=== PATIENT | male | born 1960 | race African-American/Black ===

== ENCOUNTER 2020-10-03 11:13 | Inpatient (IN) | payer MEDICAID, OTHER ==
[~2020-10-03] VITALS: Ht 165.1 cm; Wt 87.3 kg
[~2020-10-03 11:13] MED LIST: ASPI-886 PO; ATOR20TA58 PO; INSU100I13 SQ; INSU100V11 IJ; MULT-445 PO; NPH,100V5 SQ; Pantoprazole PO
[2020-10-03] MEDS ORDERED: cefTRIAXone IV Push 1 GM VIAL. IVP ONE ×2 (11:30→13:00)
--- NOTE | 2020-10-03 11:48 | RAD ---
Exam performed: One view chest. Indication: Reason: cough, covid? / Spl. Instructions: / History: Date of Service: 10/03/2020 11:34 AM Comparison: One view chest from 09/05/2018. Single AP upright portable view chest findings: Cardiomediastinal silhouette is within upper limits of normal. There are prominent interstitial cristal ngs and some airspace opacities in both lungs. Previous median sternotomy. No acute infiltrates, effu amelia or pneumothorax is detected. The bony structures are normal. Impression: Prominent interstitial and airspace opacities in both lungs likely infiltrates. Electronically signed by: Sarika Vogt MD (10/03/2020 11:46 AM) [id number]
[2020-10-03 11:54] LABS: BASO # 0.1 x10^3/uL (0.0-0.2); BASO % 1 % (0-3); EOS # 0.2 x10^3/uL (0.0-0.7); EOS % 3 % (0-3); HEMATOCRIT 36.8 % (39.0-53.0); HEMOGLOBIN 12.6 g/dL (13.0-17.5); LYMPH % 19 % (24-48); MEAN CORPUSCULAR HEMOGLOBIN 27 pg (25-35); MEAN CORPUSCULAR HGB CONC 34 g/dL (31-37); MEAN CORPUSCULAR VOLUME 80 fL (79-100); MONO # 0.6 x10^3/uL (0.0-1.1); MONO % 11 % (0-9); NEUT # 3.5 x10^3/uL (1.8-7.7); NEUT % 66 % (31-73); PLATELET COUNT 401 x10^3/uL (140-400); RED CELL DISTRIBUTION WIDTH 14.8 % (11.5-14.5); WHITE BLOOD COUNT 5.2 x10^3/uL (4.0-11.0)
[2020-10-03 12:05] LABS: CALCIUM 10.7 mg/dL (8.5-10.1); CREATININE 1.3 mg/dL (0.7-1.3); GFR 68.1; POTASSIUM 4.8 mmol/L (3.5-5.1)
[2020-10-03 12:11] LABS: ALBUMIN 3.4 g/dL (3.4-5.0); ALBUMIN/GLOBULIN RATIO 0.9 (1.0-1.7); TOTAL BILIRUBIN 0.4 mg/dL (0.2-1.0); TOTAL PROTEIN 7.3 g/dL (6.4-8.2)
[2020-10-03 12:17] LABS: C-REACTIVE PROTEIN 107.8 mg/L (0-3.3)
[2020-10-03] MEDS ORDERED: CONTRAST GIVEN. MC PRN (13:00)
[2020-10-03] MEDS ORDERED: DEXAMETHASONE SOD PHOS 4 MG/ML VIAL IVP ONE (13:00)
[2020-10-03] MEDS ORDERED: IOHEXOL 350 MG/ML 100 ML VIAL. IV ONE (13:00)
[2020-10-03] MEDS ORDERED: KETOROLAC 30 MG/ML VIAL. IVP ONE (13:00)
--- NOTE | 2020-10-03 13:34 | RAD ---
Examination: CT angiography chest with IV contrast HISTORY: History of shortness of breath, chest pain, elevated d-dimer COMPARISON: None available TECHNIQUE: Axial CT angiographic images of the chest were performed with IV contrast. Coronal and sag ittal 3-D MIP reformats. Exposure: One or more of the following individualized dose reduction techniques were utilized for thi s examination: 1. Automated exposure control 2. Adjustment of the mA and/or kV according to patient size 3. Use of iterative reconstruction technique FINDINGS: The central airways are patent. Coronary artery calcifications. The heart size grossly appears unrema rkable. There is no evidence of filling defect identified in the main pulmonary arterial trunk and right and left main pulmonary arteries and the visualized lobar, segmental branch of the pulmonary arteries. Th ere are diffuse patchy airspace opacities identified in the bilateral lungs. The visualized liver, sp kj, adrenals grossly appears unremarkable. Moderate degenerative changes thoracic spine. IMPRESSION: 1. No evidence of pulmonary embolism. 2. Diffuse patchy airspace opacities identified in the bilateral lungs suspicious for infiltrates or atypical or viral/ covid pneumonia. Electronically signed by: Pete Perez MD (10/03/2020 1:32 PM) [id number]
[2020-10-03] MEDS ORDERED: DEXTROSE 50% 25 GM / 50ML DISP.SYRIN. IV PRN (14:30)
[2020-10-03] MEDS ORDERED: CALCIUM CARBONATE 500 MG TAB.CHEW PO PRN (14:30)
[2020-10-03] MEDS ORDERED: MAG HYDROX/ALUMINUM HYD/SIMETH 30 ML ORAL.SUSP PO PRN (14:30)
[2020-10-03] MEDS ORDERED: ONDANSETRON PF 4 MG/2 ML VIAL. IVP PRN (14:30)
[2020-10-03] MEDS ORDERED: PROCHLORPERAZINE 10 MG/2 ML VIAL. IVP PRN (14:30)
[2020-10-03] MEDS ORDERED: MAGNESIUM HYDROXIDE 2,400 MG/30 ML ORAL.SUSP. PO PRN (14:30)
[2020-10-03] MEDS ORDERED: IV NORMAL SALINE 1000ML BAG 1,000 ML IV PRN (14:30)
[2020-10-03] MEDS ORDERED: BISACODYL 10 MG SUPP.RECT. PR PRN (14:30)
[2020-10-03] MEDS ORDERED: ZOLPIDEM 5 MG TABLET. PO PRN (14:30)
--- NOTE | 2020-10-03 14:42 | PDOC1 ---
History and Physical Date of Admission Date of Admission DATE: 10/03/20 TIME: 14:18 Identification/Chief Complaint Chief Complaint Weakness Source Source: Patient History of Present Illness History of Present Illness Patient is a 60-year-old male with past medical history DM2, who presents to the ER complaining of worsening of weakness for the past several days. He reports associated nausea, vomiting, fevers, and shortness of breath. This morning he fell to the floor and was barely able to crawl to his neighbors transfer assistance, and was then brought to the ER for further evaluation. He has known COVID-19 exposure at work. Upon arrival he was tachycardic, and his chest x-ray showed diffuse bilateral opacities suspicious for COVID-19 viral pneumonia. He is very weak and I feel unable to care for himself at this time. Will admit patient for further management. Past Medical History Cardiovascular: CAD, HTN, Hyperlipidemia GI: GERD Psych: No pertinent hx Rheumatologic: No pertinent hx Renal/: Chronic renal insuff Endocrine: Diabetes Past Surgical History Past Surgical History: CABG Family History Family History: Heart Disease, Hypertension Social History Smoke: No ALCOHOL: none Drugs: Cocaine Current Medications Current Medications Current Medications Ceftriaxone Sodium (Rocephin) 1 gm 1X ONCE IVP Last administered on 10/03/20at 11:57; Start 10/03/20 at 11:30; Stop 10/03/20 at 11:31; Status DC Iohexol (Omnipaque 350 Mg/ml) 100 ml 1X ONCE IV Last administered on 10/03/20at 13:29; Start 10/03/20 at 13:00; Stop 10/03/20 at 13:01; Status DC Info (CONTRAST GIVEN -- Rx MONITORING) 1 each PRN DAILY PRN MC SEE COMMENTS; Start 10/03/20 at 13:00; Stop 10/05/20 at 12:59 Dexamethasone Sodium Phosphate (Decadron) 10 mg 1X ONCE IVP Last administered on 10/03/20at 13:52; Start 10/03/20 at 13:00; Stop 10/03/20 at 13:01; Status DC Ceftriaxone Sodium (Rocephin) 1 gm 1X ONCE IVP ; Start 10/03/20 at 13:00; Stop 10/03/20 at 13:01; Status DC Ketorolac Tromethamine (Toradol 30mg Vial) 30 mg 1X ONCE IVP Last administered on 10/03/20at 13:51; Start 10/03/20 at 13:00; Stop 10/03/20 at 13:01; Status DC Active Scripts Active Multivitamins (Multivitamin) 1 Each Tablet 1 Tab PO DAILY [Pantoprazole] 40 MG Tablet.dr 40 Mg PO DAILYAC 30 Days Aspirin Ec (Aspirin) 81 Mg Tablet.dr 81 Mg PO DAILYWBKFT 30 Days Atorvastatin Calcium 20 Mg Tablet 20 Mg PO QHS 30 Days Reported Novolin N (Nph, Human Insulin Isophane) 100 Unit/1 Ml Vial 30 Unit SQ HS Novolin R (Insulin Regular, Human) 100 Unit/1 Ml Vial 30 Unit IJ TIDWMEALS Allergies Allergies: Coded Allergies: No Known Drug Allergies (Unverified , 09/05/18) ROS Review of System GENERAL: Weakness. Denies weight change. SKIN: No bruising, hair changes or rashes. EYES: No blurred, double or loss of vision. NOSE AND THROAT: Cough, sore throat. No history of nosebleeds. HEART: Denies chest pain, denies palpitations. LUNGS: Shortness of breath, cough. Denies hemoptysis, wheezing. GASTROINTESTINAL: Nausea and vomiting. Denies abdominal pain. GENITOURINARY: Denies dysuria, frequency, urgency, hematuria. NEUROLOGIC: Denies history of numbness, tingling, or tremor. PSYCHIATRIC: Denies anxiety, denies depression. ENDOCRINE: No history of heat or cold intolerance, polyuria or polydipsia. EXTREMITIES: Muscle weakness. Denies joint pain, pain on walking or stiffness. Physical Exam Physical Exam General: Alert, Oriented X3, Cooperative, lethargic HEENT: PERRLA, EOMI Lungs: Clear to auscultation, Normal air movement Heart: Tachycardic. No murmurs Cardiovascular: S1, S2 Abdomen: Normal bowel sounds, Soft, No tenderness Extremities: No clubbing, No cyanosis Skin: No rashes, No significant lesion Neuro: Normal speech, Normal tone, Sensation intact Psych/Mental Status: Mental status NL, Mood NL Vitals Vitals Vital Signs Date Time Temp Pulse Resp B/P (MAP) Pulse Ox O2 Delivery O2 Flow Rate FiO2 10/03/20 11:18 99.0 114 16 153/85 (107) 100 Room Air 99.0 Labs Labs Laboratory Tests Test 12/27/20 11:25 10/03/20 11:42 Glucose (Fingerstick) 298 mg/dL (70-99) White Blood Count 5.2 x10^3/uL (4.0-11.0) Red Blood Count 4.60 x10^6/uL (4.30-5.70) Hemoglobin 12.6 g/dL (13.0-17.5) Hematocrit 36.8 % (39.0-53.0) Mean Corpuscular Volume 80 fL (79-100) Mean Corpuscular Hemoglobin 27 pg (25-35) Mean Corpuscular Hemoglobin Concent 34 g/dL (31-37) Red Cell Distribution Width 14.8 % (11.5-14.5) Platelet Count 401 x10^3/uL (140-400) Neutrophils (%) (Auto) 66 % (31-73) Lymphocytes (%) (Auto) 19 % (24-48) Monocytes (%) (Auto) 11 % (0-9) Eosinophils (%) (Auto) 3 % (0-3) Basophils (%) (Auto) 1 % (0-3) Neutrophils # (Auto) 3.5 x10^3/uL (1.8-7.7) Lymphocytes # (Auto) 1.0 x10^3/uL (1.0-4.8) Monocytes # (Auto) 0.6 x10^3/uL (0.0-1.1) Eosinophils # (Auto) 0.2 x10^3/uL (0.0-0.7) Basophils # (Auto) 0.1 x10^3/uL (0.0-0.2) D-Dimer (Charla) 2.58 ug/mlFEU (0.00-0.50) Sodium Level 132 mmol/L (136-145) Potassium Level 4.8 mmol/L (3.5-5.1) Chloride Level 96 mmol/L (98-107) Carbon Dioxide Level 27 mmol/L (21-32) Anion Gap 9 (6-14) Blood Urea Nitrogen 15 mg/dL (8-26) Creatinine 1.3 mg/dL (0.7-1.3) Estimated GFR (Cockcroft-Gault) 68.1 BUN/Creatinine Ratio 12 (6-20) Glucose Level 318 mg/dL (70-99) Lactic Acid Level 1.8 mmol/L (0.4-2.0) Calcium Level 10.7 mg/dL (8.5-10.1) Total Bilirubin 0.4 mg/dL (0.2-1.0) Aspartate Amino Transf (AST/SGOT) 9 U/L (15-37) Alanine Aminotransferase (ALT/SGPT) 10 U/L (16-63) Alkaline Phosphatase 82 U/L (46-116) Lactate Dehydrogenase 251 U/L (85-227) Creatine Kinase 64 U/L (39-308) Troponin I Quantitative < 0.017 ng/mL (0.000-0.055) C-Reactive Protein, Quantitative 107.8 mg/L (0-3.3) VO-Wmk-H-Type Natriuretic Peptide 133 pg/mL (0-124) Total Protein 7.3 g/dL (6.4-8.2) Albumin 3.4 g/dL (3.4-5.0) Albumin/Globulin Ratio 0.9 (1.0-1.7) Laboratory Tests Test 10/03/20 11:25 10/03/20 11:42 Glucose (Fingerstick) 298 mg/dL (70-99) White Blood Count 5.2 x10^3/uL (4.0-11.0) Red Blood Count 4.60 x10^6/uL (4.30-5.70) Hemoglobin 12.6 g/dL (13.0-17.5) Hematocrit 36.8 % (39.0-53.0) Mean Corpuscular Volume 80 fL (79-100) Mean Corpuscular Hemoglobin 27 pg (25-35) Mean Corpuscular Hemoglobin Concent 34 g/dL (31-37) Red Cell Distribution Width 14.8 % (11.5-14.5) Platelet Count 401 x10^3/uL (140-400) Neutrophils (%) (Auto) 66 % (31-73) Lymphocytes (%) (Auto) 19 % (24-48) Monocytes (%) (Auto) 11 % (0-9) Eosinophils (%) (Auto) 3 % (0-3) Basophils (%) (Auto) 1 % (0-3) Neutrophils # (Auto) 3.5 x10^3/uL (1.8-7.7) Lymphocytes # (Auto) 1.0 x10^3/uL (1.0-4.8) Monocytes # (Auto) 0.6 x10^3/uL (0.0-1.1) Eosinophils # (Auto) 0.2 x10^3/uL (0.0-0.7) Basophils # (Auto) 0.1 x10^3/uL (0.0-0.2) D-Dimer (Charla) 2.58 ug/mlFEU (0.00-0.50) Sodium Level 132 mmol/L (136-145) Potassium Level 4.8 mmol/L (3.5-5.1) Chloride Level 96 mmol/L (98-107) Carbon Dioxide Level 27 mmol/L (21-32) Anion Gap 9 (6-14) Blood Urea Nitrogen 15 mg/dL (8-26) Creatinine 1.3 mg/dL (0.7-1.3) Estimated GFR (Cockcroft-Gault) 68.1 BUN/Creatinine Ratio 12 (6-20) Glucose Level 318 mg/dL (70-99) Lactic Acid Level 1.8 mmol/L (0.4-2.0) Calcium Level 10.7 mg/dL (8.5-10.1) Total Bilirubin 0.4 mg/dL (0.2-1.0) Aspartate Amino Transf (AST/SGOT) 9 U/L (15-37) Alanine Aminotransferase (ALT/SGPT) 10 U/L (16-63) Alkaline Phosphatase 82 U/L (46-116) Lactate Dehydrogenase 251 U/L (85-227) Creatine Kinase 64 U/L (39-308) Troponin I Quantitative < 0.017 ng/mL (0.000-0.055) C-Reactive Protein, Quantitative 107.8 mg/L (0-3.3) LW-Fmh-P-Type Natriuretic Peptide 133 pg/mL (0-124) Total Protein 7.3 g/dL (6.4-8.2) Albumin 3.4 g/dL (3.4-5.0) Albumin/Globulin Ratio 0.9 (1.0-1.7) Images Images Examination: CT angiography chest with IV contrast HISTORY: History of shortness of breath, chest pain, elevated d-dimer COMPARISON: None available TECHNIQUE: Axial CT angiographic images of the chest were performed with IV contrast. Coronal and sagittal 3-D MIP reformats. Exposure: One or more of the following individualized dose reduction techniques were utilized for this examination: 1. Automated exposure control 2. Adjustment of the mA and/or kV according to patient size 3. Use of iterative reconstruction technique FINDINGS: The central airways are patent. Coronary artery calcifications. The heart size grossly appears unremarkable. There is no evidence of filling defect identified in the main pulmonary arterial trunk and right and left main pulmonary arteries and the visualized lobar, segmental branch of the pulmonary arteries. There are diffuse patchy airspace opacities identified in the bilateral lungs. The visualized liver, spleen, adrenals grossly appears unremarkable. Moderate degenerative changes thoracic spine. IMPRESSION: 1. No evidence of pulmonary embolism. 2. Diffuse patchy airspace opacities identified in the bilateral lungs suspicious for infiltrates or atypical or viral/ covid pneumonia. VTE Prophylaxis Ordered VTE Prophylaxis Devices: No VTE Pharmacological Prophylaxi: Yes Assessment/Plan Assessment/Plan Atypical vs viral pneumonia COVID-19 PUI Weakness Physical debility DM2 with hyperglycemia Plan: COVID-19 pending Will treat atypical pneumonia with doxycycline twice daily Hold steroids unless patient requiring oxygen IV fluids Zofran as needed Basal insulin, MDSS insulin PT/OT CTA negative for PE FEN - ADA diet PPX - Lovenox FULL CODE Dispo - inpatient for above Justifications for Admission Other Justification GUSTAVO BOONE MD Oct 03, 2020 14:42
--- NOTE | 2020-10-03 14:43 | ED.ADGEN ---
Past Medical History Past Medical History: CAD, Diabetes-Type II Past Surgical History: Coronary Bypass Surgery Smoking Status: Never Smoker Alcohol Use: None Drug Use: None General Adult EDM: Chief Complaint: WEAKNESS/GENERALIZED HPI: HPI: Patient is a 60-year-old male who presents to the emergency room with severe weakness, cough, shortness of breath, body aches. He states that this started about 10 days ago and he has been unable to get out of bed since it all started. He generally feels unwell. He states that he had to crawl to his neighbor's house today to get help. They create him out to the car and brought him here. He did require significant assistance by nursing staff to get him out of the car and into a wheelchair. He states he has been having some shortness of breath but it is mild. Review of Systems: Review of Systems: Complete ROS is negative unless otherwise documented in HPI Current Medications: Current Medications Medications (Trade) Dose Ordered Sig/Magali Start Time Stop Time Status Last Admin Dose Admin Acetaminophen (Tylenol) 650 mg PRN Q6HRS PRN 10/03/20 14:30 Al Hydroxide/Mg Hydroxide (Mylanta Plus Xs) 30 ml PRN Q3HRS PRN 10/03/20 14:30 Bisacodyl (Dulcolax Supp) 10 mg PRN DAILY PRN 10/03/20 14:30 Calcium Carbonate/ Glycine (Tums) 500 mg PRN Q3HRS PRN 10/03/20 14:30 Ceftriaxone Sodium (Rocephin) 1 gm 1X ONCE 10/03/20 13:00 10/03/20 13:01 DC Dexamethasone Sodium Phosphate (Decadron) 10 mg 1X ONCE 10/03/20 13:00 10/03/20 13:01 DC 10/03/20 13:52 10 MG Dextrose (Dextrose 50%-Water Syringe) 12.5 gm PRN Q15MIN PRN 10/03/20 14:30 Doxycycline Hyclate 100 mg/ Dextrose 100 ml @ 50 mls/hr ONCE ONCE 10/03/20 15:00 10/03/20 16:59 Enoxaparin Sodium (Lovenox 40mg Syringe) 40 mg Q24H 10/04/20 09:00 Info (CONTRAST GIVEN -- Rx MONITORING) 1 each PRN DAILY PRN 10/03/20 13:00 10/05/20 12:59 Insulin Glargine (Lantus Syringe) 10 unit QHS 10/03/20 21:00 UNV Insulin Human Lispro (HumaLOG) 0-7 UNITS TIDWMEALS 10/03/20 17:00 UNV Iohexol (Omnipaque 350 Mg/ml) 100 ml 1X ONCE 10/03/20 13:00 10/03/20 13:01 DC 10/03/20 13:29 100 ML Ketorolac Tromethamine (Toradol 30mg Vial) 30 mg 1X ONCE 10/03/20 13:00 10/03/20 13:01 DC 10/03/20 13:51 30 MG Magnesium Hydroxide (Milk Of Magnesia) 2,400 mg PRN Q12HR PRN 10/03/20 14:30 Morphine Sulfate (Morphine Sulfate) 2 mg PRN Q1HR PRN 10/03/20 14:30 Ondansetron HCl (Zofran) 4 mg PRN Q6HRS PRN 10/03/20 14:30 Prochlorperazine Edisylate (Compazine) 10 mg PRN Q6HRS PRN 10/03/20 14:30 Sodium Chloride 1,000 ml @ 75 mls/hr CONT PRN 10/03/20 14:30 Zolpidem Tartrate (Ambien) 5 mg PRN QHS PRN 10/03/20 14:30 Allergies: Allergies: Allergies Coded Allergies Type Severity Reaction Last Updated Verified No Known Drug Allergies 09/05/18 No Physical Exam: PE: General: Awake, alert, NAD. Well Nourished, well hydrated. Cooperative HEENT: Atraumatic, EOMI, PERRL, airway patent, moist oral mucosa Neck: Supple, trachea midline Respiratory: CTA bilaterally, normal effort, no wheezing/crackles CV: RRR, no murmur, cap refill <2 GI: Soft, nondistended, nontender, no masses MSK: No obvious deformities Skin: Warm, dry, intact Neuro: A&O x3, speech NL, sensory and motor grossly intact, no focal deficits diffuse bilateral weakness Psych: Normal affect, normal mood, not suicidal or homicidal Current Patient Data: Labs: Laboratory Tests Test 10/03/20 11:25 10/03/20 11:42 Glucose (Fingerstick) 298 mg/dL (70-99) H White Blood Count 5.2 x10^3/uL (4.0-11.0) Red Blood Count 4.60 x10^6/uL (4.30-5.70) Hemoglobin 12.6 g/dL (13.0-17.5) L Hematocrit 36.8 % (39.0-53.0) L Mean Corpuscular Volume 80 fL (79-100) Mean Corpuscular Hemoglobin 27 pg (25-35) Mean Corpuscular Hemoglobin Concent 34 g/dL (31-37) Red Cell Distribution Width 14.8 % (11.5-14.5) H Platelet Count 401 x10^3/uL (140-400) H Neutrophils (%) (Auto) 66 % (31-73) Lymphocytes (%) (Auto) 19 % (24-48) L Monocytes (%) (Auto) 11 % (0-9) H Eosinophils (%) (Auto) 3 % (0-3) Basophils (%) (Auto) 1 % (0-3) Neutrophils # (Auto) 3.5 x10^3/uL (1.8-7.7) Lymphocytes # (Auto) 1.0 x10^3/uL (1.0-4.8) Monocytes # (Auto) 0.6 x10^3/uL (0.0-1.1) Eosinophils # (Auto) 0.2 x10^3/uL (0.0-0.7) Basophils # (Auto) 0.1 x10^3/uL (0.0-0.2) D-Dimer (Charla) 2.58 ug/mlFEU (0.00-0.50) H Sodium Level 132 mmol/L (136-145) L Potassium Level 4.8 mmol/L (3.5-5.1) Chloride Level 96 mmol/L (98-107) L Carbon Dioxide Level 27 mmol/L (21-32) Anion Gap 9 (6-14) Blood Urea Nitrogen 15 mg/dL (8-26) Creatinine 1.3 mg/dL (0.7-1.3) Estimated GFR (Cockcroft-Gault) 68.1 BUN/Creatinine Ratio 12 (6-20) Glucose Level 318 mg/dL (70-99) H Lactic Acid Level 1.8 mmol/L (0.4-2.0) Calcium Level 10.7 mg/dL (8.5-10.1) H Total Bilirubin 0.4 mg/dL (0.2-1.0) Aspartate Amino Transferase (AST) 9 U/L (15-37) L Alanine Aminotransferase (ALT) 10 U/L (16-63) L Alkaline Phosphatase 82 U/L (46-116) Lactate Dehydrogenase 251 U/L (85-227) H Creatine Kinase 64 U/L (39-308) Troponin I Quantitative < 0.017 ng/mL (0.000-0.055) C-Reactive Protein, Quantitative 107.8 mg/L (0-3.3) H NL-Hoh-M-Type Natriuretic Peptide 133 pg/mL (0-124) H Total Protein 7.3 g/dL (6.4-8.2) Albumin 3.4 g/dL (3.4-5.0) Albumin/Globulin Ratio 0.9 (1.0-1.7) L Laboratory Tests 10/03/20 11:42 Laboratory Tests 10/03/20 11:42 Vital Signs: Vital Signs Date Time Temp Pulse Resp B/P (MAP) Pulse Ox O2 Delivery O2 Flow Rate FiO2 10/03/20 11:18 99.0 114 16 153/85 (107) 100 Room Air 99.0 EKG: EKG: [] Heart Score: Risk Factors: Risk Factors: DM, Current or recent (<one month) smoker, HTN, HLP, family history of CAD, obesity. Risk Scores: Score 0 - 3: 2.5% MACE over next 6 weeks - Discharge Home Score 4 - 6: 20.3% MACE over next 6 weeks - Admit for Clinical Observation Score 7 - 10: 72.7% MACE over next 6 weeks - Early Invasive Strategies Radiology/Procedures: Radiology/Procedures: [] Course & Med Decision Making: Course & Med Decision Making Pertinent Labs and Imaging studies reviewed. (See chart for details) Patient is a 60-year-old male who presents to the emergency room with severe weakness, cough, body aches, fever. At this time there is concern for the novel coronavirus 19. Patient's risk factors include age, race, obesity. Risk stratifying work-up was ordered including chest x-ray, d-dimer, CPK, CRP, LDH, troponin, ferritin, CBC, CMP. At this time, patients labs, vitals, and exam are significant for elevated D-dimer, elevated inflammatory markers. Due to patient's risk and clinical picture, they will need to be admitted at this time. IVFs will be limited due to concern for fluid overload in COVID-19 patients. Patient will be given empiric antibiotics due to infiltrates and risk of co- bacterial infection. Further treatment will be dictated by the inpatient team. Dragon Disclaimer: Dragon Disclaimer: This electronic medical record was generated, in whole or in part, using a voice recognition dictation system. Departure Departure Impression: Primary Impression: Person under investigation for COVID-19 Additional Impression: Physical debility Disposition: ADMITTED INPT THIS HOSP Condition: IMPROVED Referrals: NO PCP (PCP) Problem Qualifiers YASMEEN BOLDEN MD Oct 03, 2020 14:43
[2020-10-03] MEDS ORDERED: DOXYCYCLINE HYCLATE 100 MG in IV DEXTROSE 5% 100ML 100 ML IV ONE (15:00)
[2020-10-03] MEDS ORDERED: DIPHENOXYLATE/ATROPINE TABLET. PO PRN (15:15)
[2020-10-03 16:41] LABS: INFLUENZA A PATIENT NEGATIVE (NEGATIVE); INFLUENZA B PATIENT NEGATIVE (NEGATIVE)
[2020-10-03] MEDS ORDERED: INSULIN LISPRO 300 UNITS/3 ML VIAL. SQ SCH (17:00)
[2020-10-03] MEDS: ASCORBIC ACID 500 MG TABLET PO SCH ×2 (17:57→23:54)
[2020-10-03] MEDS ORDERED: INSULIN LISPRO 300 UNITS/3 ML VIAL. SQ ONE (18:30)
[2020-10-03] MEDS ORDERED: INSULIN REGULAR 100 UNIT/ML 3ML VIAL. IV ONE (18:30)
[2020-10-03 19:05] VITALS: BP 127/76
[2020-10-03] MEDS ORDERED: INSULIN GLARGINE SYRINGE. SQ SCH (21:00)
[2020-10-03] MEDS: DOXYCYCLINE HYCLATE 100 MG in IV DEXTROSE 5% 100ML 100 ML IV SCH (21:40)
[2020-10-03] MEDS: INSULIN GLARGINE SYRINGE. SQ SCH (21:44)
[2020-10-03] MEDS: traMADol 50 MG TABLET PO PRN (22:00)
[2020-10-03 22:41] VITALS: BP 146/76
[2020-10-04 02:57] VITALS: BP 169/76
[2020-10-04] MEDS: ASCORBIC ACID 500 MG TABLET PO SCH ×4 (06:56→23:45)
[2020-10-04 07:00] VITALS: BP 145/66
[2020-10-04] MEDS ORDERED: INSULIN LISPRO 300 UNITS/3 ML VIAL. SQ ONE (08:15)
[2020-10-04] MEDS: DOXYCYCLINE HYCLATE 100 MG in IV DEXTROSE 5% 100ML 100 ML IV SCH ×2 (08:32→21:47)
[2020-10-04] MEDS: CHOLECALCIFEROL (VITAMIN D3) 5,000 UNIT CAPSULE PO SCH (08:32)
[2020-10-04] MEDS: ZINC SULFATE 220 MG CAPSULE. PO SCH (08:32)
[2020-10-04] MEDS: ENOXAPARIN 40 MG/0.4 ML SYRINGE. SQ SCH (08:33)
--- NOTE | 2020-10-04 09:48 | PDOC ---
PROGRESS NOTES Date of Service: DATE: 10/04/20 TIME: 09:48 Chief Complaint Chief Complaint VTE Prophylaxis Ordered VTE Prophylaxis Devices: No VTE Pharmacological Prophylaxi: Yes impression Assessment/Plan Atypical vs viral pneumonia COVID-19 PUI Weakness Physical debility DM2 with hyperglycemia, uncontrolled Plan: COVID-19 pending, PUI Will treat atypical pneumonia with doxycycline twice daily Hold steroids unless patient requiring oxygen IV fluids Zofran as needed Basal insulin, MDSS insulin PT/OT CTA negative for PE FEN - ADA diet PPX - Lovenox FULL CODE Dispo - inpatient for above CVC BED D/W RN Justifications for Admission Justifications for Admission Other Justification History of Present Illness History of Present Illness Identification/Chief Complaint Chief Complaint Weakness Source Source: Patient History of Present Illness History of Present Illness Patient is a 60-year-old male with past medical history DM2, who presents to the ER complaining of worsening of weakness for the past several days. He reports associated nausea, vomiting, fevers, and shortness of breath. This morning he fell to the floor and was barely able to crawl to his neighbors transfer assistance, and was then brought to the ER for further evaluation. He has known COVID-19 exposure at work. Upon arrival he was tachycardic, and his chest x-ray showed diffuse bilateral opacities suspicious for COVID-19 viral pneumonia. He is very weak and I feel unable to care for himself at this time. Will admit patient for further management. Past Medical History Cardiovascular: CAD, HTN, Hyperlipidemia GI: GERD Psych: No pertinent hx Rheumatologic: No pertinent hx Renal/: Chronic renal insuff Endocrine: Diabetes Past Surgical History Past Surgical History: CABG Family History Family History: Heart Disease, Hypertension Social History Smoke: No ALCOHOL: none Drugs: Cocaine Vitals Vitals Vital Signs Date Time Temp Pulse Resp B/P (MAP) Pulse Ox O2 Delivery O2 Flow Rate FiO2 10/04/20 07:00 97.5 74 20 145/66 (92) 98 Room Air 97.5 10/03/20 16:52 Physical Exam Physical Exam Physical Exam General: Alert, Oriented X3, Cooperative, lethargic HEENT: PERRLA, EOMI Lungs: Clear to auscultation, Normal air movement Heart: Tachycardic. No murmurs Cardiovascular: S1, S2 Abdomen: Normal bowel sounds, Soft, No tenderness Extremities: No clubbing, No cyanosis Skin: No rashes, No significant lesion Neuro: Normal speech, Normal tone, Sensation intact Psych/Mental Status: Mental status NL, Mood NL General: Cooperative Lungs: Clear Extremities: No cyanosis Labs LABS DERED: BCULT Procedure Result BLOOD CULTURE Preliminary NO GROWTH AFTER 1 DAY PATIENT: MARTHA AMADORACCOUNT: [id number] : 1960 LOCATION: ER AGE: 60 SEX: M EXAM STATUS: REG ER ORD. PHYSICIAN: YASMEEN BOLDEN MD REASON: sob, chest pain, elevated ddimer PROCEDURE: CT ANGIOGRAPHY CHEST Examination: CT angiography chest with IV contrast HISTORY: History of shortness of breath, chest pain, elevated d-dimer COMPARISON: None available TECHNIQUE: Axial CT angiographic images of the chest were performed with IV contrast. Coronal and sagittal 3-D MIP reformats. Exposure: One or more of the following individualized dose reduction techniques were utilized for this examination: 1. Automated exposure control 2. Adjustment of the mA and/or kV according to patient size 3. Use of iterative reconstruction technique FINDINGS: The central airways are patent. Coronary artery calcifications. The heart size grossly appears unremarkable. There is no evidence of filling defect identified in the main pulmonary arterial trunk and right and left main pulmonary arteries and the visualized lobar, segmental branch of the pulmonary arteries. There are diffuse patchy airspace opacities identified in the bilateral lungs. The visualized liver, spleen, adrenals grossly appears unremarkable. Moderate degenerative changes thoracic spine. IMPRESSION: 1. No evidence of pulmonary embolism. 2. Diffuse patchy airspace opacities identified in the bilateral lungs mclean spicious for infiltrates or atypical or viral/ covid pneumonia. Electronically signed by: Pete Perez MD (10/03/2020 1:32 PM) [id number] DICTATED and SIGNED BY: PETE PEREZ MD DATE: 10/03/20 [id number] Laboratory Tests Test 10/03/20 11:25 10/03/20 11:42 10/03/20 16:17 10/03/20 17:56 Glucose (Fingerstick) 298 mg/dL (70-99) 545 mg/dL (70-99) White Blood Count 5.2 x10^3/uL (4.0-11.0) Red Blood Count 4.60 x10^6/uL (4.30-5.70) Hemoglobin 12.6 g/dL (13.0-17.5) Hematocrit 36.8 % (39.0-53.0) Mean Corpuscular Volume 80 fL (79-100) Mean Corpuscular Hemoglobin 27 pg (25-35) Mean Corpuscular Hemoglobin Concent 34 g/dL (31-37) Red Cell Distribution Width 14.8 % (11.5-14.5) Platelet Count 401 x10^3/uL (140-400) Neutrophils (%) (Auto) 66 % (31-73) Lymphocytes (%) (Auto) 19 % (24-48) Monocytes (%) (Auto) 11 % (0-9) Eosinophils (%) (Auto) 3 % (0-3) Basophils (%) (Auto) 1 % (0-3) Neutrophils # (Auto) 3.5 x10^3/uL (1.8-7.7) Lymphocytes # (Auto) 1.0 x10^3/uL (1.0-4.8) Monocytes # (Auto) 0.6 x10^3/uL (0.0-1.1) Eosinophils # (Auto) 0.2 x10^3/uL (0.0-0.7) Basophils # (Auto) 0.1 x10^3/uL (0.0-0.2) D-Dimer (Charla) 2.58 ug/mlFEU (0.00-0.50) Sodium Level 132 mmol/L (136-145) Potassium Level 4.8 mmol/L (3.5-5.1) Chloride Level 96 mmol/L (98-107) Carbon Dioxide Level 27 mmol/L (21-32) Anion Gap 9 (6-14) Blood Urea Nitrogen 15 mg/dL (8-26) Creatinine 1.3 mg/dL (0.7-1.3) Estimated GFR (Cockcroft-Gault) 68.1 BUN/Creatinine Ratio 12 (6-20) Glucose Level 318 mg/dL (70-99) Lactic Acid Level 1.8 mmol/L (0.4-2.0) Calcium Level 10.7 mg/dL (8.5-10.1) Total Bilirubin 0.4 mg/dL (0.2-1.0) Aspartate Amino Transf (AST/SGOT) 9 U/L (15-37) Alanine Aminotransferase (ALT/SGPT) 10 U/L (16-63) Alkaline Phosphatase 82 U/L (46-116) Lactate Dehydrogenase 251 U/L (85-227) Creatine Kinase 64 U/L (39-308) Troponin I Quantitative < 0.017 ng/mL (0.000-0.055) C-Reactive Protein, Quantitative 107.8 mg/L (0-3.3) IE-Gqx-G-Type Natriuretic Peptide 133 pg/mL (0-124) Total Protein 7.3 g/dL (6.4-8.2) Albumin 3.4 g/dL (3.4-5.0) Albumin/Globulin Ratio 0.9 (1.0-1.7) Influenza Type A Antigen Negative (NEGATIVE) Influenza Type B Antigen Negative (NEGATIVE) Test 10/03/20 21:02 10/04/20 07:49 Glucose (Fingerstick) 590 mg/dL (70-99) 477 mg/dL (70-99) Comment Review of Relevant I have reviewed the following items prashant (where applicable) has been applied. Labs Laboratory Tests Test 10/03/20 11:25 10/03/20 11:42 10/03/20 16:17 10/03/20 17:56 Glucose (Fingerstick) 298 mg/dL (70-99) 545 mg/dL (70-99) White Blood Count 5.2 x10^3/uL (4.0-11.0) Red Blood Count 4.60 x10^6/uL (4.30-5.70) Hemoglobin 12.6 g/dL (13.0-17.5) Hematocrit 36.8 % (39.0-53.0) Mean Corpuscular Volume 80 fL (79-100) Mean Corpuscular Hemoglobin 27 pg (25-35) Mean Corpuscular Hemoglobin Concent 34 g/dL (31-37) Red Cell Distribution Width 14.8 % (11.5-14.5) Platelet Count 401 x10^3/uL (140-400) Neutrophils (%) (Auto) 66 % (31-73) Lymphocytes (%) (Auto) 19 % (24-48) Monocytes (%) (Auto) 11 % (0-9) Eosinophils (%) (Auto) 3 % (0-3) Basophils (%) (Auto) 1 % (0-3) Neutrophils # (Auto) 3.5 x10^3/uL (1.8-7.7) Lymphocytes # (Auto) 1.0 x10^3/uL (1.0-4.8) Monocytes # (Auto) 0.6 x10^3/uL (0.0-1.1) Eosinophils # (Auto) 0.2 x10^3/uL (0.0-0.7) Basophils # (Auto) 0.1 x10^3/uL (0.0-0.2) D-Dimer (Charla) 2.58 ug/mlFEU (0.00-0.50) Sodium Level 132 mmol/L (136-145) Potassium Level 4.8 mmol/L (3.5-5.1) Chloride Level 96 mmol/L (98-107) Carbon Dioxide Level 27 mmol/L (21-32) Anion Gap 9 (6-14) Blood Urea Nitrogen 15 mg/dL (8-26) Creatinine 1.3 mg/dL (0.7-1.3) Estimated GFR (Cockcroft-Gault) 68.1 BUN/Creatinine Ratio 12 (6-20) Glucose Level 318 mg/dL (70-99) Lactic Acid Level 1.8 mmol/L (0.4-2.0) Calcium Level 10.7 mg/dL (8.5-10.1) Total Bilirubin 0.4 mg/dL (0.2-1.0) Aspartate Amino Transf (AST/SGOT) 9 U/L (15-37) Alanine Aminotransferase (ALT/SGPT) 10 U/L (16-63) Alkaline Phosphatase 82 U/L (46-116) Lactate Dehydrogenase 251 U/L (85-227) Creatine Kinase 64 U/L (39-308) Troponin I Quantitative < 0.017 ng/mL (0.000-0.055) C-Reactive Protein, Quantitative 107.8 mg/L (0-3.3) AM-Pev-Q-Type Natriuretic Peptide 133 pg/mL (0-124) Total Protein 7.3 g/dL (6.4-8.2) Albumin 3.4 g/dL (3.4-5.0) Albumin/Globulin Ratio 0.9 (1.0-1.7) Influenza Type A Antigen Negative (NEGATIVE) Influenza Type B Antigen Negative (NEGATIVE) Test 10/03/20 21:02 10/04/20 07:49 Glucose (Fingerstick) 590 mg/dL (70-99) 477 mg/dL (70-99) Laboratory Tests Test 10/03/20 11:25 10/03/20 11:42 10/03/20 16:17 10/03/20 17:56 Glucose (Fingerstick) 298 mg/dL (70-99) 545 mg/dL (70-99) White Blood Count 5.2 x10^3/uL (4.0-11.0) Red Blood Count 4.60 x10^6/uL (4.30-5.70) Hemoglobin 12.6 g/dL (13.0-17.5) Hematocrit 36.8 % (39.0-53.0) Mean Corpuscular Volume 80 fL (79-100) Mean Corpuscular Hemoglobin 27 pg (25-35) Mean Corpuscular Hemoglobin Concent 34 g/dL (31-37) Red Cell Distribution Width 14.8 % (11.5-14.5) Platelet Count 401 x10^3/uL (140-400) Neutrophils (%) (Auto) 66 % (31-73) Lymphocytes (%) (Auto) 19 % (24-48) Monocytes (%) (Auto) 11 % (0-9) Eosinophils (%) (Auto) 3 % (0-3) Basophils (%) (Auto) 1 % (0-3) Neutrophils # (Auto) 3.5 x10^3/uL (1.8-7.7) Lymphocytes # (Auto) 1.0 x10^3/uL (1.0-4.8) Monocytes # (Auto) 0.6 x10^3/uL (0.0-1.1) Eosinophils # (Auto) 0.2 x10^3/uL (0.0-0.7) Basophils # (Auto) 0.1 x10^3/uL (0.0-0.2) D-Dimer (Charla) 2.58 ug/mlFEU (0.00-0.50) Sodium Level 132 mmol/L (136-145) Potassium Level 4.8 mmol/L (3.5-5.1) Chloride Level 96 mmol/L (98-107) Carbon Dioxide Level 27 mmol/L (21-32) Anion Gap 9 (6-14) Blood Urea Nitrogen 15 mg/dL (8-26) Creatinine 1.3 mg/dL (0.7-1.3) Estimated GFR (Cockcroft-Gault) 68.1 BUN/Creatinine Ratio 12 (6-20) Glucose Level 318 mg/dL (70-99) Lactic Acid Level 1.8 mmol/L (0.4-2.0) Calcium Level 10.7 mg/dL (8.5-10.1) Total Bilirubin 0.4 mg/dL (0.2-1.0) Aspartate Amino Transf (AST/SGOT) 9 U/L (15-37) Alanine Aminotransferase (ALT/SGPT) 10 U/L (16-63) Alkaline Phosphatase 82 U/L (46-116) Lactate Dehydrogenase 251 U/L (85-227) Creatine Kinase 64 U/L (39-308) Troponin I Quantitative < 0.017 ng/mL (0.000-0.055) C-Reactive Protein, Quantitative 107.8 mg/L (0-3.3) KG-Aap-C-Type Natriuretic Peptide 133 pg/mL (0-124) Total Protein 7.3 g/dL (6.4-8.2) Albumin 3.4 g/dL (3.4-5.0) Albumin/Globulin Ratio 0.9 (1.0-1.7) Influenza Type A Antigen Negative (NEGATIVE) Influenza Type B Antigen Negative (NEGATIVE) Test 10/03/20 21:02 10/04/20 07:49 Glucose (Fingerstick) 590 mg/dL (70-99) 477 mg/dL (70-99) Medications Current Medications Ceftriaxone Sodium (Rocephin) 1 gm 1X ONCE IVP Last administered on 10/03/20at 11:57; Start 10/03/20 at 11:30; Stop 10/03/20 at 11:31; Status DC Iohexol (Omnipaque 350 Mg/ml) 100 ml 1X ONCE IV Last administered on 10/03/20at 13:29; Start 10/03/20 at 13:00; Stop 10/03/20 at 13:01; Status DC Info (CONTRAST GIVEN -- Rx MONITORING) 1 each PRN DAILY PRN MC SEE COMMENTS; Start 10/03/20 at 13:00; Stop 10/05/20 at 12:59 Dexamethasone Sodium Phosphate (Decadron) 10 mg 1X ONCE IVP Last administered on 10/03/20at 13:52; Start 10/03/20 at 13:00; Stop 10/03/20 at 13:01; Status DC Ceftriaxone Sodium (Rocephin) 1 gm 1X ONCE IVP ; Start 10/03/20 at 13:00; Stop 10/03/20 at 13:01; Status DC Ketorolac Tromethamine (Toradol 30mg Vial) 30 mg 1X ONCE IVP Last administered on 10/03/20at 13:51; Start 10/03/20 at 13:00; Stop 10/03/20 at 13:01; Status DC Doxycycline Hyclate 100 mg/ Dextrose 100 ml @ 50 mls/hr BID IV Last administered on 10/04/20at 08:32; Start 10/03/20 at 21:00; Stop 10/08/20 at 20:59 Doxycycline Hyclate 100 mg/ Dextrose 100 ml @ 50 mls/hr ONCE ONCE IV ; Start 10/03/20 at 15:00; Stop 10/03/20 at 16:59; Status DC Ondansetron HCl (Zofran) 4 mg PRN Q6HRS PRN IVP NAUSEA/VOMITING; Start 10/03/20 at 14:30 Prochlorperazine Edisylate (Compazine) 10 mg PRN Q6HRS PRN IVP NAUSEA/VOMITING 2ND CHOICE; Start 10/03/20 at 14:30 Al Hydroxide/Mg Hydroxide (Mylanta Plus Xs) 30 ml PRN Q3HRS PRN PO HEARTBURN / GAS; Start 10/03/20 at 14:30 Calcium Carbonate/ Glycine (Tums) 500 mg PRN Q3HRS PRN PO UPSET STOMACH; Start 10/03/20 at 14:30 Zolpidem Tartrate (Ambien) 5 mg PRN QHS PRN PO INSOMNIA, MAY REPEAT IN 1HR; Start 10/03/20 at 14:30 Morphine Sulfate (Morphine Sulfate) 2 mg PRN Q1HR PRN IV PAIN; Start 10/03/20 at 14:30 Acetaminophen (Tylenol) 650 mg PRN Q6HRS PRN PO Headaches, Temp > 101.5F; Start 10/03/20 at 14:30 Magnesium Hydroxide (Milk Of Magnesia) 2,400 mg PRN Q12HR PRN PO CONSTIPATION; Start 10/03/20 at 14:30 Bisacodyl (Dulcolax Supp) 10 mg PRN DAILY PRN ND CONSTIPATION; Start 10/03/20 at 14:30 Enoxaparin Sodium (Lovenox 40mg Syringe) 40 mg Q24H SQ Last administered on 10/04/20at 08:33; Start 10/04/20 at 09:00 Insulin Glargine (Lantus Syringe) 10 unit QHS SQ ; Start 10/03/20 at 21:00; Stop 10/03/20 at 20:44; Status DC Insulin Human Lispro (HumaLOG) 0-7 UNITS TIDWMEALS SQ Last administered on 10/03/20at 18:17; Start 10/03/20 at 17:00; Stop 10/04/20 at 08:08; Status DC Dextrose (Dextrose 50%-Water Syringe) 12.5 gm PRN Q15MIN PRN IV SEE COMMENTS; Start 10/03/20 at 14:30 Sodium Chloride 1,000 ml @ 75 mls/hr CONT PRN IV SEE I/O Last administered on 10/03/20at 16:15; Start 10/03/20 at 14:30 Zinc Sulfate (Orazinc) 220 mg DAILY PO Last administered on 10/04/20at 08:32; Start 10/04/20 at 09:00 Ascorbic Acid (Vitamin C) 500 mg Q6HRS PO Last administered on 10/04/20at 06:56; Start 10/03/20 at 18:00 Vitamin D (Vitamin D3) 5,000 unit DAILY PO Last administered on 10/04/20at 08:32; Start 10/04/20 at 09:00 Diphenoxylate HCl/ Atropine (Lomotil) 1 tab PRN QID PRN PO DIARRHEA; Start 10/03/20 at 15:15 Insulin Human Lispro (HumaLOG) 5 units 1X ONCE SQ ; Start 10/03/20 at 18:30; Stop 10/03/20 at 18:31; Status DC Insulin Human Regular (HumuLIN R VIAL) 5 unit 1X ONCE IV Last administered on 10/03/20at 18:24; Start 10/03/20 at 18:30; Stop 10/03/20 at 18:32; Status DC Insulin Glargine (Lantus Syringe) 70 unit QHS SQ Last administered on 10/03/20at 21:44; Start 10/03/20 at 21:00 Tramadol HCl (Ultram) 50 mg PRN Q6HRS PRN PO PAIN Last administered on 10/03/20at 22:00; Start 10/03/20 at 20:45 Insulin Human Lispro (HumaLOG) 20 units 1X ONCE SQ Last administered on 10/04/20at 08:34; Start 10/04/20 at 08:15; Stop 10/04/20 at 08:25; Status DC Insulin Human Lispro (HumaLOG) 30 units TIDWMEALS SQ ; Start 10/04/20 at 12:00 Active Scripts Active Multivitamins (Multivitamin) 1 Each Tablet 1 Tab PO DAILY [Pantoprazole] 40 MG Tablet. 40 Mg PO DAILYAC 30 Days Aspirin Ec (Aspirin) 81 Mg Tablet. 81 Mg PO DAILYWBKFT 30 Days Atorvastatin Calcium 20 Mg Tablet 20 Mg PO QHS 30 Days Reported Novolin N (Nph, Human Insulin Isophane) 100 Unit/1 Ml Vial 70 Unit SQ HS Novolin R (Insulin Regular, Human) 100 Unit/1 Ml Vial 30 Unit IJ TIDWMEALS Vitals/I & O Vital Sign - Last 24 Hours 10/03/20 10/03/20 10/03/20 10/03/20 11:18 11:24 11:52 12:22 Temp 99.0 99.0 Pulse 114 112 108 84 Resp 16 B/P (MAP) 153/85 (107) Pulse Ox 100 100 98 98 O2 Delivery Room Air 10/03/20 10/03/20 10/03/20 10/03/20 12:52 13:49 14:22 14:52 Pulse 106 92 104 80 Pulse Ox 100 98 98 98 10/03/20 10/03/20 10/03/20 10/03/20 15:22 15:52 16:52 17:30 Pulse 78 80 80 Resp 23 Pulse Ox 95 92 100 O2 Delivery Room Air O2 Flow Rate 10/03/20 10/03/20 10/03/20 10/03/20 19:05 20:00 22:00 22:41 Temp 97.4 97.2 97.4 97.2 Pulse 74 79 Resp 18 18 B/P (MAP) 127/76 (93) 146/76 (99) Pulse Ox 98 98 98 O2 Delivery Room Air Room Air Nasal Cannula Room Air 10/03/20 10/04/20 10/04/20 23:00 02:57 07:00 Temp 97.6 97.5 97.6 97.5 Pulse 67 74 Resp 16 20 B/P (MAP) 169/76 (107) 145/66 (92) Pulse Ox 98 97 98 O2 Delivery Room Air Room Air Room Air Intake and Output 10/03/20 10/03/20 10/04/20 15:00 23:00 07:00 Intake Total 300 ml 950 ml Output Total 250 ml 900 ml Balance 50 ml 50 ml Justicifation of Admission Dx: Justifications for Admission: Justification of Admission Dx: Yes Comminuty Aquired Pneumonia: Hypoxemia Comments: HYPOXIA VENECIA MINAYA MD Oct 04, 2020 09:48
[2020-10-04 11:00] VITALS: BP 104/68
--- NOTE | 2020-10-04 11:12 | CONS ---
DATE OF CONSULTATION: PULMONARY CONSULTATION ATTENDING PHYSICIAN: Marco Cordova MD REASON FOR CONSULTATION: Hypoxia, dyspnea. HISTORY OF PRESENT ILLNESS The patient is a 60-year-old male who has history of type 2 diabetes. He was brought into the hospital with complaint of worsening weakness. He has some shortness of breath and cough. He has some subjective fever and vomiting as well. The patient fell to the floor and was barely able to crawl due to weakness. He asked the neighbors for assistance. He had known COVID exposure at work. He was evaluated in the Emergency Room. Currently, he is on room air. He is afebrile. His CTA chest was reviewed. There was no evidence of pulmonary embolism. There were diffuse bilateral patchy airspace opacities consistent with viral infection. PAST MEDICAL HISTORY: Significant for hypertension, CAD, hyperlipidemia, GERD, chronic renal insufficiency, and diabetes. PAST SURGICAL HISTORY: CABG. FAMILY HISTORY: Heart disease and hypertension. SOCIAL HISTORY: Denies significant tobacco use. He has done cocaine. ALLERGIES: None. CURRENT MEDICATIONS: Reviewed as listed in the MRAD. REVIEW OF SYSTEMS: Ten-point system obtained. Pertinent positives discussed in my history of present illness, otherwise noncontributory. All systems that were negative were reviewed as well. PHYSICAL EXAMINATION: VITAL SIGNS: Reviewed. He is afebrile, pulse ox 90% on room air. GENERAL: Visual exam done due to COVID suspicion. No obvious respiratory distress. SKIN: No skin rash. EXTREMITIES: No leg edema. LABORATORY DATA: Reviewed. His influenza screen is negative. BUN and creatinine 15 and 1.3. D-dimer 2.5. White cell count 5.2, hemoglobin 12.6, platelets 241. IMPRESSION: 1. Dyspnea with diffuse bilateral patchy airspace opacities on a CT chest. Highly suspicious for COVID-19 viral pneumonia. He is on room air at present. 2. Abnormal CT chest with diffuse bilateral patchy airspace opacities suggestive of viral infection, likely COVID. He has known exposure. 3. No significant tobacco history. 4. Abnormal D-dimer. No evidence of pulmonary embolism. Likely D-dimer elevation is related to COVID-19. RECOMMENDATIONS: 1. We will continue isolation until COVID ruled out. 2. Once COVID positive, we should initiate dexamethasone. 3. Continue Lovenox for DVT prophylaxis. 4. Continue empiric antibiotic. 5. Monitor the clinical course. CAROLYN HAYES MD DR: KEN/kimberly JOB#: [id number] / [id number]
[2020-10-04] MEDS ORDERED: INSULIN LISPRO 300 UNITS/3 ML VIAL. SQ SCH (12:00)
[2020-10-04] MEDS: MULTIVITAMIN with MINERAL TABLET. PO SCH (13:17)
[2020-10-04] MEDS: ASPIRIN ENTERIC COATED 81 MG TABLET.DR. PO SCH (13:18)
[2020-10-04] MEDS: INSULIN LISPRO 300 UNITS/3 ML VIAL. SQ SCH ×2 (13:20→17:55)
[2020-10-04 14:18] LABS: BARBITURATES NEG (NEG); BENZODIAZEPINES NEG (NEG); CANNABINOIDS NEG (NEG); COCAINE NEG (NEG); METHADONE NEG (NEG); OPIATES NEG (NEG); PHENCYCLIDINE NEG (NEG)
[2020-10-04 14:19] LABS: AMPHETAMINE/METHAMPHETAMINE NEG (NEG)
[2020-10-04 15:00] VITALS: BP 106/76
[2020-10-04 19:00] VITALS: BP_SYST 153; BP_SYST 99; BP_DIAS 67; BP_DIAS 70
--- NOTE | 2020-10-04 19:35 | NUR ---
Pt sitting up in chair without c/o pain assessment completed vss poc explained will resume care and continue to monitor pt. Call light placed in reach.
[2020-10-04] MEDS ORDERED: NPH HUMAN INSULIN ISOPHANE SQ SCH (21:00)
[2020-10-04] MEDS: ATORVASTATIN CALCIUM 20 MG TABLET PO SCH (21:47)
[2020-10-04] MEDS: LACTOBACILLUS RHAMNOSUS GG 1 CAPSULE. PO SCH (21:47)
[2020-10-04] MEDS: INSULIN GLARGINE SYRINGE. SQ SCH (21:49)
[2020-10-04 23:00] VITALS: BP 126/79
[2020-10-04 23:08] LABS: HEMOGLOBIN A1C 11.8 % (4.8-5.6)
[2020-10-05 03:15] VITALS: BP 101/53
[2020-10-05] MEDS: ASCORBIC ACID 500 MG TABLET PO SCH ×3 (06:46→17:25)
[2020-10-05] MEDS: PANTOPRAZOLE 40 MG TABLET.DR. PO SCH (06:47)
[2020-10-05 07:00] VITALS: BP 129/83
[2020-10-05] MEDS: LACTOBACILLUS RHAMNOSUS GG 1 CAPSULE. PO SCH ×2 (08:48→20:26)
[2020-10-05] MEDS: ZINC SULFATE 220 MG CAPSULE. PO SCH (08:48)
[2020-10-05] MEDS: DOXYCYCLINE HYCLATE 100 MG in IV DEXTROSE 5% 100ML 100 ML IV SCH ×2 (08:48→20:32)
[2020-10-05] MEDS: CHOLECALCIFEROL (VITAMIN D3) 5,000 UNIT CAPSULE PO SCH (08:48)
[2020-10-05] MEDS: ASPIRIN ENTERIC COATED 81 MG TABLET.DR. PO SCH (08:48)
[2020-10-05] MEDS: MULTIVITAMIN with MINERAL TABLET. PO SCH (08:48)
[2020-10-05] MEDS: INSULIN LISPRO 300 UNITS/3 ML VIAL. SQ SCH ×3 (08:50→17:00)
[2020-10-05] MEDS: ENOXAPARIN 40 MG/0.4 ML SYRINGE. SQ SCH (08:50)
--- NOTE | 2020-10-05 08:54 | PDOC ---
PROGRESS NOTES Date of Service: DATE: 10/05/20 TIME: 08:53 Chief Complaint Chief Complaint VTE Prophylaxis Ordered VTE Prophylaxis Devices: No VTE Pharmacological Prophylaxi: Yes impression Assessment/Plan Atypical vs viral pneumonia COVID-19 PUI Weakness Physical debility DM2 with hyperglycemia, uncontrolled Plan: COVID-19 pending, PUI Will treat atypical pneumonia with doxycycline twice daily Hold steroids unless patient requiring oxygen IV fluids Zofran as needed Basal insulin, MDSS insulin PT/OT CTA negative for PE FEN - ADA diet PPX - Lovenox FULL CODE Dispo - inpatient for above CVC BED iv steroids will need full ten day course Continue ABX: //DOXY PT/OT DVT/GI PPX chloraseptic spray prn D/W RN Justifications for Admission Justifications for Admission Other Justification History of Present Illness History of Present Illness Identification/Chief Complaint Chief Complaint Weakness Source Source: Patient History of Present Illness History of Present Illness Patient is a 60-year-old male with past medical history DM2, who presents to the ER complaining of worsening of weakness for the past several days. He reports associated nausea, vomiting, fevers, and shortness of breath. This morning he fell to the floor and was barely able to crawl to his neighbors transfer assistance, and was then brought to the ER for further evaluation. He has known COVID-19 exposure at work. Upon arrival he was tachycardic, and his chest x-ray showed diffuse bilateral opacities suspicious for COVID-19 viral pneumonia. He is very weak and I feel unable to care for himself at this time. Will admit patient for further management. Past Medical History Cardiovascular: CAD, HTN, Hyperlipidemia GI: GERD Psych: No pertinent hx Rheumatologic: No pertinent hx Renal/: Chronic renal insuff Endocrine: Diabetes Past Surgical History Past Surgical History: CABG Family History Family History: Heart Disease, Hypertension Social History Smoke: No ALCOHOL: none Drugs: Cocaine Vitals Vitals Vital Signs Date Time Temp Pulse Resp B/P (MAP) Pulse Ox O2 Delivery O2 Flow Rate FiO2 10/05/20 07:00 97.7 80 20 129/83 (98) 98 Room Air 97.7 Physical Exam Physical Exam Physical Exam General: Alert, Oriented X3, Cooperative, lethargic HEENT: PERRLA, EOMI Lungs: Clear to auscultation, Normal air movement Heart: Tachycardic. No murmurs Cardiovascular: S1, S2 Abdomen: Normal bowel sounds, Soft, No tenderness Extremities: No clubbing, No cyanosis Skin: No rashes, No significant lesion Neuro: Normal speech, Normal tone, Sensation intact Psych/Mental Status: Mental status NL, Mood NL General: Cooperative Lungs: Clear Abdomen: No tenderness Extremities: No cyanosis Labs LABS Laboratory Tests Test 10/04/20 10:55 10/04/20 12:03 10/04/20 16:46 10/04/20 17:52 Hemoglobin A1c 11.8 % (4.8-5.6) Urine Opiates Screen Neg (NEG) Urine Methadone Screen Neg (NEG) Urine Barbiturates Neg (NEG) Urine Phencyclidine Screen Neg (NEG) Urine Amphetamine/Methamphetamine Neg (NEG) Urine Benzodiazepines Screen Neg (NEG) Urine Cocaine Screen Neg (NEG) Urine Cannabinoids Screen Neg (NEG) Urine Ethyl Alcohol Neg (NEG) Glucose (Fingerstick) 372 mg/dL (70-99) 123 mg/dL (70-99) 126 mg/dL (70-99) Test 10/04/20 21:51 10/05/20 07:37 Glucose (Fingerstick) 241 mg/dL (70-99) 302 mg/dL (70-99) Comment Review of Relevant I have reviewed the following items prashant (where applicable) has been applied. Labs Laboratory Tests Test 10/03/20 11:25 10/03/20 11:42 10/03/20 12:02 10/03/20 16:17 Glucose (Fingerstick) 298 mg/dL (70-99) White Blood Count 5.2 x10^3/uL (4.0-11.0) Red Blood Count 4.60 x10^6/uL (4.30-5.70) Hemoglobin 12.6 g/dL (13.0-17.5) Hematocrit 36.8 % (39.0-53.0) Mean Corpuscular Volume 80 fL (79-100) Mean Corpuscular Hemoglobin 27 pg (25-35) Mean Corpuscular Hemoglobin Concent 34 g/dL (31-37) Red Cell Distribution Width 14.8 % (11.5-14.5) Platelet Count 401 x10^3/uL (140-400) Neutrophils (%) (Auto) 66 % (31-73) Lymphocytes (%) (Auto) 19 % (24-48) Monocytes (%) (Auto) 11 % (0-9) Eosinophils (%) (Auto) 3 % (0-3) Basophils (%) (Auto) 1 % (0-3) Neutrophils # (Auto) 3.5 x10^3/uL (1.8-7.7) Lymphocytes # (Auto) 1.0 x10^3/uL (1.0-4.8) Monocytes # (Auto) 0.6 x10^3/uL (0.0-1.1) Eosinophils # (Auto) 0.2 x10^3/uL (0.0-0.7) Basophils # (Auto) 0.1 x10^3/uL (0.0-0.2) D-Dimer (Charla) 2.58 ug/mlFEU (0.00-0.50) Sodium Level 132 mmol/L (136-145) Potassium Level 4.8 mmol/L (3.5-5.1) Chloride Level 96 mmol/L (98-107) Carbon Dioxide Level 27 mmol/L (21-32) Anion Gap 9 (6-14) Blood Urea Nitrogen 15 mg/dL (8-26) Creatinine 1.3 mg/dL (0.7-1.3) Estimated GFR (Cockcroft-Gault) 68.1 BUN/Creatinine Ratio 12 (6-20) Glucose Level 318 mg/dL (70-99) Lactic Acid Level 1.8 mmol/L (0.4-2.0) Calcium Level 10.7 mg/dL (8.5-10.1) Total Bilirubin 0.4 mg/dL (0.2-1.0) Aspartate Amino Transf (AST/SGOT) 9 U/L (15-37) Alanine Aminotransferase (ALT/SGPT) 10 U/L (16-63) Alkaline Phosphatase 82 U/L (46-116) Lactate Dehydrogenase 251 U/L (85-227) Creatine Kinase 64 U/L (39-308) Troponin I Quantitative < 0.017 ng/mL (0.000-0.055) C-Reactive Protein, Quantitative 107.8 mg/L (0-3.3) WN-Hpe-O-Type Natriuretic Peptide 133 pg/mL (0-124) Total Protein 7.3 g/dL (6.4-8.2) Albumin 3.4 g/dL (3.4-5.0) Albumin/Globulin Ratio 0.9 (1.0-1.7) Coronavirus (PCR) Detected (Not Detected) Influenza Type A Antigen Negative (NEGATIVE) Influenza Type B Antigen Negative (NEGATIVE) Test 10/03/20 17:56 10/03/20 21:02 10/04/20 07:49 10/04/20 10:55 Glucose (Fingerstick) 545 mg/dL (70-99) 590 mg/dL (70-99) 477 mg/dL (70-99) Hemoglobin A1c 11.8 % (4.8-5.6) Urine Opiates Screen Neg (NEG) Urine Methadone Screen Neg (NEG) Urine Barbiturates Neg (NEG) Urine Phencyclidine Screen Neg (NEG) Urine Amphetamine/Methamphetamine Neg (NEG) Urine Benzodiazepines Screen Neg (NEG) Urine Cocaine Screen Neg (NEG) Urine Cannabinoids Screen Neg (NEG) Urine Ethyl Alcohol Neg (NEG) Test 10/04/20 12:03 10/04/20 16:46 10/04/20 17:52 10/04/20 21:51 Glucose (Fingerstick) 372 mg/dL (70-99) 123 mg/dL (70-99) 126 mg/dL (70-99) 241 mg/dL (70-99) Test 10/05/20 07:37 Glucose (Fingerstick) 302 mg/dL (70-99) Laboratory Tests Test 10/04/20 10:55 10/04/20 12:03 10/04/20 16:46 10/04/20 17:52 Hemoglobin A1c 11.8 % (4.8-5.6) Urine Opiates Screen Neg (NEG) Urine Methadone Screen Neg (NEG) Urine Barbiturates Neg (NEG) Urine Phencyclidine Screen Neg (NEG) Urine Amphetamine/Methamphetamine Neg (NEG) Urine Benzodiazepines Screen Neg (NEG) Urine Cocaine Screen Neg (NEG) Urine Cannabinoids Screen Neg (NEG) Urine Ethyl Alcohol Neg (NEG) Glucose (Fingerstick) 372 mg/dL (70-99) 123 mg/dL (70-99) 126 mg/dL (70-99) Test 10/04/20 21:51 10/05/20 07:37 Glucose (Fingerstick) 241 mg/dL (70-99) 302 mg/dL (70-99) Microbiology 10/03/20 Blood Culture - Preliminary, Resulted NO GROWTH AFTER 1 DAY Medications Current Medications Ceftriaxone Sodium (Rocephin) 1 gm 1X ONCE IVP Last administered on 10/03/20at 11:57; Start 10/03/20 at 11:30; Stop 10/03/20 at 11:31; Status DC Iohexol (Omnipaque 350 Mg/ml) 100 ml 1X ONCE IV Last administered on 10/03/20at 13:29; Start 10/03/20 at 13:00; Stop 10/03/20 at 13:01; Status DC Info (CONTRAST GIVEN -- Rx MONITORING) 1 each PRN DAILY PRN MC SEE COMMENTS; Start 10/03/20 at 13:00; Stop 10/05/20 at 12:59 Dexamethasone Sodium Phosphate (Decadron) 10 mg 1X ONCE IVP Last administered on 10/03/20at 13:52; Start 10/03/20 at 13:00; Stop 10/03/20 at 13:01; Status DC Ceftriaxone Sodium (Rocephin) 1 gm 1X ONCE IVP ; Start 10/03/20 at 13:00; Stop 10/03/20 at 13:01; Status DC Ketorolac Tromethamine (Toradol 30mg Vial) 30 mg 1X ONCE IVP Last administered on 10/03/20at 13:51; Start 10/03/20 at 13:00; Stop 10/03/20 at 13:01; Status DC Doxycycline Hyclate 100 mg/ Dextrose 100 ml @ 50 mls/hr BID IV Last administered on 10/05/20at 08:48; Start 10/03/20 at 21:00; Stop 10/08/20 at 20:59 Doxycycline Hyclate 100 mg/ Dextrose 100 ml @ 50 mls/hr ONCE ONCE IV ; Start 10/03/20 at 15:00; Stop 10/03/20 at 16:59; Status DC Ondansetron HCl (Zofran) 4 mg PRN Q6HRS PRN IVP NAUSEA/VOMITING; Start 10/03/20 at 14:30 Prochlorperazine Edisylate (Compazine) 10 mg PRN Q6HRS PRN IVP NAUSEA/VOMITING 2ND CHOICE; Start 10/03/20 at 14:30 Al Hydroxide/Mg Hydroxide (Mylanta Plus Xs) 30 ml PRN Q3HRS PRN PO HEARTBURN / GAS; Start 10/03/20 at 14:30 Calcium Carbonate/ Glycine (Tums) 500 mg PRN Q3HRS PRN PO UPSET STOMACH; Start 10/03/20 at 14:30 Zolpidem Tartrate (Ambien) 5 mg PRN QHS PRN PO INSOMNIA, MAY REPEAT IN 1HR; Start 10/03/20 at 14:30 Morphine Sulfate (Morphine Sulfate) 2 mg PRN Q1HR PRN IV PAIN; Start 10/03/20 at 14:30 Acetaminophen (Tylenol) 650 mg PRN Q6HRS PRN PO Headaches, Temp > 101.5F; Start 10/03/20 at 14:30 Magnesium Hydroxide (Milk Of Magnesia) 2,400 mg PRN Q12HR PRN PO CONSTIPATION; Start 10/03/20 at 14:30 Bisacodyl (Dulcolax Supp) 10 mg PRN DAILY PRN [place] CONSTIPATION; Start 10/03/20 at 14:30 Enoxaparin Sodium (Lovenox 40mg Syringe) 40 mg Q24H SQ Last administered on 10/05/20at 08:50; Start 10/04/20 at 09:00 Insulin Glargine (Lantus Syringe) 10 unit QHS SQ ; Start 10/03/20 at 21:00; Stop 10/03/20 at 20:44; Status DC Insulin Human Lispro (HumaLOG) 0-7 UNITS TIDWMEALS SQ Last administered on 10/03/20at 18:17; Start 10/03/20 at 17:00; Stop 10/04/20 at 08:08; Status DC Dextrose (Dextrose 50%-Water Syringe) 12.5 gm PRN Q15MIN PRN IV SEE COMMENTS; Start 10/03/20 at 14:30 Sodium Chloride 1,000 ml @ 75 mls/hr CONT PRN IV SEE I/O Last administered on 10/03/20at 16:15; Start 10/03/20 at 14:30 Zinc Sulfate (Orazinc) 220 mg DAILY PO Last administered on 10/05/20at 08:48; Start 10/04/20 at 09:00 Ascorbic Acid (Vitamin C) 500 mg Q6HRS PO Last administered on 10/05/20at 06:46; Start 10/03/20 at 18:00 Vitamin D (Vitamin D3) 5,000 unit DAILY PO Last administered on 10/05/20at 08:48; Start 10/04/20 at 09:00 Diphenoxylate HCl/ Atropine (Lomotil) 1 tab PRN QID PRN PO DIARRHEA; Start 10/03/20 at 15:15 Insulin Human Lispro (HumaLOG) 5 units 1X ONCE SQ ; Start 10/03/20 at 18:30; Stop 10/03/20 at 18:31; Status DC Insulin Human Regular (HumuLIN R VIAL) 5 unit 1X ONCE IV Last administered on 10/03/20at 18:24; Start 10/03/20 at 18:30; Stop 10/03/20 at 18:32; Status DC Insulin Glargine (Lantus Syringe) 70 unit QHS SQ Last administered on 10/04/20at 21:49; Start 10/03/20 at 21:00 Tramadol HCl (Ultram) 50 mg PRN Q6HRS PRN PO PAIN Last administered on 10/03/20at 22:00; Start 10/03/20 at 20:45 Insulin Human Lispro (HumaLOG) 20 units 1X ONCE SQ Last administered on 10/04/20at 08:34; Start 10/04/20 at 08:15; Stop 10/04/20 at 08:25; Status DC Insulin Human Lispro (HumaLOG) 30 units TIDWMEALS SQ ; Start 10/04/20 at 12:00; Stop 10/04/20 at 10:20; Status DC Aspirin (Ecotrin) 81 mg DAILYWBKFT PO Last administered on 10/05/20at 08:48; Start 10/04/20 at 12:00 Atorvastatin Calcium (Lipitor) 20 mg QHS PO Last administered on 10/04/20at 21:47; Start 10/04/20 at 21:00 Insulin Human Lispro (HumaLOG) 30 units TIDWMEALS SQ Last administered on 10/05/20at 08:50; Start 10/04/20 at 12:00 Multivitamins (Thera M Plus) 1 tab DAILY PO Last administered on 10/05/20at 08:48; Start 10/04/20 at 12:00 Non-Formulary Medication (Nph, Human Insulin Isophane (Novolin N)) 70 unit HS SQ ; Start 10/04/20 at 21:00; Status UNV Pantoprazole Sodium (Protonix) 40 mg DAILYAC PO Last administered on 10/05/20at 06:47; Start 10/05/20 at 07:30 Lactobacillus Rhamnosus (Culturelle) 1 cap BID PO Last administered on at 08:48; Start 10/04/20 at 21:00 Active Scripts Active Multivitamins (Multivitamin) 1 Each Tablet 1 Tab PO DAILY [Pantoprazole] 40 MG Tablet. 40 Mg PO DAILYAC 30 Days Aspirin Ec (Aspirin) 81 Mg Tablet. 81 Mg PO DAILYWBKFT 30 Days Atorvastatin Calcium 20 Mg Tablet 20 Mg PO QHS 30 Days Reported Novolin N (Nph, Human Insulin Isophane) 100 Unit/1 Ml Vial 70 Unit SQ HS Novolin R (Insulin Regular, Human) 100 Unit/1 Ml Vial 30 Unit IJ TIDWMEALS Vitals/I & O Vital Sign - Last 24 Hours 10/04/20 10/04/20 10/04/20 10/04/20 11:00 15:00 19:00 19:35 Temp 97.7 97.5 97.6 97.7 97.5 97.6 Pulse 82 80 80 Resp 20 20 18 B/P (MAP) 104/68 (80) 106/76 (86) 99/67 (78) Pulse Ox 98 99 96 O2 Delivery Room Air Room Air Room Air Room Air 10/04/20 10/05/20 10/05/20 23:00 03:15 07:00 Temp 97.6 97.7 97.7 97.6 97.7 97.7 Pulse 81 90 80 Resp 18 18 20 B/P (MAP) 126/79 (95) 101/53 (69) 129/83 (98) Pulse Ox 95 97 98 O2 Delivery Room Air Room Air Room Air Intake and Output 10/04/20 10/04/20 10/05/20 15:00 23:00 07:00 Intake Total 470 ml 500 ml 200 ml Output Total 1900 ml 1200 ml Balance -1430 ml 500 ml -1000 ml Justicifation of Admission Dx: Justifications for Admission: Justification of Admission Dx: Yes Comminuty Aquired Pneumonia: Hypoxemia VENECIA MINAYA MD Oct 05, 2020 08:54
[2020-10-05] MEDS: traMADol 50 MG TABLET PO PRN (09:14)
[2020-10-05 11:00] VITALS: BP 106/73
--- NOTE | 2020-10-05 14:08 | NUR ---
SS following for discharge planning. SS reviewed pt chart and discussed with pt RN. Pt is from home and is currently on room air. COVID19 positive. PT recommended acute rehabilitation and OT recommended fdc unit. Pt on IV Doxycycline. Self pay. SS will continue to follow for discharge planning.
--- NOTE | 2020-10-05 14:41 | PDOC ---
PULMONARY PROGRESS NOTES DATE: 10/05/20 TIME: 14:36 Subjective pt. is on room air complains of sore throat no other concerns from nursing Vitals Vital Signs Date Time Temp Pulse Resp B/P (MAP) Pulse Ox O2 Delivery O2 Flow Rate FiO2 10/05/20 11:00 97.7 78 19 106/73 (84) 98 Room Air 97.7 ROS: No Nausea, No Chest Pain, No Abdominal Pain, No Increase Cough General: Alert, Oriented X4 Lungs: Clear Cardiovascular: S1, S2 Abdomen: Soft Neuro Exam: Alert Extremities: No Edema Skin: Warm Labs Laboratory Tests Test 10/03/20 16:17 10/03/20 17:56 10/03/20 21:02 10/04/20 07:49 Influenza Type A Antigen Negative (NEGATIVE) Influenza Type B Antigen Negative (NEGATIVE) Glucose (Fingerstick) 545 mg/dL (70-99) 590 mg/dL (70-99) 477 mg/dL (70-99) Test 10/04/20 10:55 10/04/20 12:03 10/04/20 16:46 10/04/20 17:52 Hemoglobin A1c 11.8 % (4.8-5.6) Urine Opiates Screen Neg (NEG) Urine Methadone Screen Neg (NEG) Urine Barbiturates Neg (NEG) Urine Phencyclidine Screen Neg (NEG) Urine Amphetamine/Methamphetamine Neg (NEG) Urine Benzodiazepines Screen Neg (NEG) Urine Cocaine Screen Neg (NEG) Urine Cannabinoids Screen Neg (NEG) Urine Ethyl Alcohol Neg (NEG) Glucose (Fingerstick) 372 mg/dL (70-99) 123 mg/dL (70-99) 126 mg/dL (70-99) Test 10/04/20 21:51 10/05/20 07:37 10/05/20 11:30 Glucose (Fingerstick) 241 mg/dL (70-99) 302 mg/dL (70-99) 210 mg/dL (70-99) Laboratory Tests Test 10/04/20 16:46 10/04/20 17:52 10/04/20 21:51 10/05/20 07:37 Glucose (Fingerstick) 123 mg/dL (70-99) 126 mg/dL (70-99) 241 mg/dL (70-99) 302 mg/dL (70-99) Test 10/05/20 11:30 Glucose (Fingerstick) 210 mg/dL (70-99) Medications Active Scripts Medications Dose Route/Sig Max Daily Dose Days Date Category Multivitamins (Multivitamin) 1 Each Tablet 1 Tab PO DAILY 09/10/18 Rx [Pantoprazole] 40 MG Tablet. 40 Mg PO DAILYAC 30 09/10/18 Rx Aspirin Ec (Aspirin) 81 Mg Tablet. 81 Mg PO DAILYWBKFT 30 09/10/18 Rx Atorvastatin Calcium 20 Mg Tablet 20 Mg PO QHS 30 09/10/18 Rx Novolin N (Nph, Human Insulin Isophane) 100 Unit/1 Ml Vial 70 Unit SQ HS 09/05/18 Reported Novolin R (Insulin Regular, Human) 100 Unit/1 Ml Vial 30 Unit IJ TIDWMEALS 09/05/18 Reported Comments CTA chest IMPRESSION: 1. No evidence of pulmonary embolism. 2. Diffuse patchy airspace opacities identified in the bilateral lungs suspicious for infiltrates or atypical or viral/ covid pneumonia. Impression . IMPRESSION: 1. Dyspnea with diffuse bilateral patchy airspace opacities on a CT chest. Positive for COVID-19 viral pneumonia. He is on room air at present. 2. Abnormal CT chest with diffuse bilateral patchy airspace opacities suggestive of viral infection, likely COVID. He has known exposure. 3. No significant tobacco history. 4. Abnormal D-dimer. No evidence of pulmonary embolism. Likely D-dimer elevation is related to COVID-19. Plan . RECOMMENDATIONS: Supplemental oxygen if needed, currently on room air Covid-19 positive Start steroids will need full ten day course Continue ABX: on DOXY PT/OT DVT/GI PPX D/W RAMBO SPAIN MD Oct 05, 2020 14:40
[2020-10-05 14:53] VITALS: BP 91/61
[2020-10-05] MEDS ORDERED: PHENOL ORAL SPRAY 177ML BOTTLE. PO PRN (15:15)
[2020-10-05] MEDS: BENZOCAINE/MENTHOL LOZENGE. PO PRN ×2 (17:23→20:58)
[2020-10-05] MEDS: DEXAMETHASONE 4 MG TABLET PO SCH (17:23)
[2020-10-05 19:00] VITALS: BP 114/65
[2020-10-05] MEDS: ATORVASTATIN CALCIUM 20 MG TABLET PO SCH (20:26)
[2020-10-05] MEDS: INSULIN GLARGINE SYRINGE. SQ SCH (20:46)
[2020-10-05 22:26] VITALS: BP 117/69
[2020-10-06] MEDS: ASCORBIC ACID 500 MG TABLET PO SCH ×4 (02:24→16:16)
[2020-10-06 03:01] VITALS: BP 114/71
[2020-10-06] MEDS: traMADol 50 MG TABLET PO PRN ×2 (03:13→22:06)
[2020-10-06 07:45] VITALS: BP 196/85
[2020-10-06] MEDS: CHOLECALCIFEROL (VITAMIN D3) 5,000 UNIT CAPSULE PO SCH (08:26)
[2020-10-06] MEDS: MULTIVITAMIN with MINERAL TABLET. PO SCH (08:26)
[2020-10-06] MEDS: ASPIRIN ENTERIC COATED 81 MG TABLET.DR. PO SCH (08:26)
[2020-10-06] MEDS: LACTOBACILLUS RHAMNOSUS GG 1 CAPSULE. PO SCH ×2 (08:26→22:06)
[2020-10-06] MEDS: ZINC SULFATE 220 MG CAPSULE. PO SCH (08:27)
[2020-10-06] MEDS: ENOXAPARIN 40 MG/0.4 ML SYRINGE. SQ SCH (08:27)
[2020-10-06] MEDS: PANTOPRAZOLE 40 MG TABLET.DR. PO SCH (08:27)
[2020-10-06] MEDS: DOXYCYCLINE HYCLATE 100 MG in IV DEXTROSE 5% 100ML 100 ML IV SCH ×2 (08:27→22:07)
[2020-10-06] MEDS ORDERED: ENALAPRILAT 1.25 MG/ML VIAL. IVP PRN (08:30)
[2020-10-06] MEDS: INSULIN LISPRO 300 UNITS/3 ML VIAL. SQ SCH ×3 (08:42→16:15)
[2020-10-06] MEDS: DEXAMETHASONE 4 MG TABLET PO SCH (08:43)
--- NOTE | 2020-10-06 08:58 | RAD ---
XR CHEST 1V History: Reason: pneumonia / Spl. Instructions: / History: Comparison: October 03, 2020 Findings: Multifocal ill-defined opacities bilaterally, increased compared to prior. No pleural effusion. No pn eumothorax. Prior median sternotomy. Unchanged heart size. Impression: 1. Increased multifocal ill-defined opacities bilaterally. Electronically signed by: Alhaji Harris DO (10/06/2020 8:55 AM) [id number]
[2020-10-06 09:47] LABS: BASO % 1 % (0-3); EOS # 0.1 x10^3/uL (0.0-0.7); EOS % 1 % (0-3); HEMATOCRIT 37.2 % (39.0-53.0); HEMOGLOBIN 12.2 g/dL (13.0-17.5); LYMPH # 1.2 x10^3/uL (1.0-4.8); LYMPH % 13 % (24-48); MEAN CORPUSCULAR HEMOGLOBIN 27 pg (25-35); MEAN CORPUSCULAR HGB CONC 33 g/dL (31-37); MEAN CORPUSCULAR VOLUME 81 fL (79-100); MONO # 0.5 x10^3/uL (0.0-1.1); MONO % 6 % (0-9); NEUT # 7.1 x10^3/uL (1.8-7.7); NEUT % 80 % (31-73); PLATELET COUNT 506 x10^3/uL (140-400); RED BLOOD COUNT 4.58 x10^6/uL (4.30-5.70); RED CELL DISTRIBUTION WIDTH 14.9 % (11.5-14.5); WHITE BLOOD COUNT 8.9 x10^3/uL (4.0-11.0)
--- NOTE | 2020-10-06 09:57 | PDOC ---
PROGRESS NOTES Date of Service: DATE: 10/06/20 TIME: 09:57 Chief Complaint Chief Complaint VTE Prophylaxis Ordered VTE Prophylaxis Devices: No VTE Pharmacological Prophylaxi: Yes impression Assessment/Plan Atypical vs viral pneumonia COVID-19 PUI Weakness, SLOW TO IMPROVE Physical debility DM2 with hyperglycemia, uncontrolled Plan: COVID-19 pending, PUI Will treat atypical pneumonia with doxycycline twice daily Hold steroids unless patient requiring oxygen IV fluids Zofran as needed Basal insulin, MDSS insulin PT/OT CTA negative for PE FEN - ADA diet PPX - Lovenox FULL CODE Dispo - inpatient for above CVC BED iv steroids will need full ten day course Continue ABX: //DOXY PT/OT DVT/GI PPX chloraseptic spray prn discharge in the next 24 to 48 hours, may need physical therapy outpatient/home health services D/W RN Justifications for Admission Justifications for Admission Other Justification History of Present Illness History of Present Illness Identification/Chief Complaint Chief Complaint Weakness Source Source: Patient History of Present Illness History of Present Illness Patient is a 60-year-old male with past medical history DM2, who presents to the ER complaining of worsening of weakness for the past several days. He reports associated nausea, vomiting, fevers, and shortness of breath. This morning he fell to the floor and was barely able to crawl to his neighbors transfer assistance, and was then brought to the ER for further evaluation. He has known COVID-19 exposure at work. Upon arrival he was tachycardic, and his chest x-ray showed diffuse bilateral opacities suspicious for COVID-19 viral pneumonia. He is very weak and I feel unable to care for himself at this time. Will admit patient for further management. Past Medical History Cardiovascular: CAD, HTN, Hyperlipidemia GI: GERD Psych: No pertinent hx Rheumatologic: No pertinent hx Renal/: Chronic renal insuff Endocrine: Diabetes Past Surgical History Past Surgical History: CABG Family History Family History: Heart Disease, Hypertension Social History Smoke: No ALCOHOL: none Drugs: Cocaine Vitals Vitals Vital Signs Date Time Temp Pulse Resp B/P (MAP) Pulse Ox O2 Delivery O2 Flow Rate FiO2 10/06/20 07:45 98.0 76 18 196/85 (122) 97 Room Air 98.0 Physical Exam Physical Exam Physical Exam General: Alert, Oriented X3, Cooperative, lethargic HEENT: PERRLA, EOMI Lungs: Clear to auscultation, Normal air movement Heart: Tachycardic. No murmurs Cardiovascular: S1, S2 Abdomen: Normal bowel sounds, Soft, No tenderness Extremities: No clubbing, No cyanosis Skin: No rashes, No significant lesion Neuro: Normal speech, Normal tone, Sensation intact Psych/Mental Status: Mental status NL, Mood NL General: Cooperative Lungs: Clear Abdomen: No tenderness Extremities: No cyanosis Labs LABS History: Reason: pneumonia / Spl. Instructions: / History: Comparison: October 03, 2020 Findings: Multifocal ill-defined opacities bilaterally, increased compared to prior. No pleural effusion. No pneumothorax. Prior median sternotomy. Unchanged heart size . Impression: 1. Increased multifocal ill-defined opacities bilaterally. Electronically signed by: Alhaji Penn DO (10/06/2020 8:55 AM) [id number] DICTATED and SIGNED BY: ALHAJI PENN DO DATE: 10/06/20 [id number] Laboratory Tests Test 10/05/20 11:30 10/05/20 16:43 10/05/20 20:43 10/06/20 07:47 Glucose (Fingerstick) 210 mg/dL (70-99) 62 mg/dL (70-99) 221 mg/dL (70-99) 284 mg/dL (70-99) Comment Review of Relevant I have reviewed the following items prashant (where applicable) has been applied. Labs Laboratory Tests Test 10/04/20 10:55 10/04/20 12:03 10/04/20 16:46 10/04/20 17:52 Hemoglobin A1c 11.8 % (4.8-5.6) Urine Opiates Screen Neg (NEG) Urine Methadone Screen Neg (NEG) Urine Barbiturates Neg (NEG) Urine Phencyclidine Screen Neg (NEG) Urine Amphetamine/Methamphetamine Neg (NEG) Urine Benzodiazepines Screen Neg (NEG) Urine Cocaine Screen Neg (NEG) Urine Cannabinoids Screen Neg (NEG) Urine Ethyl Alcohol Neg (NEG) Glucose (Fingerstick) 372 mg/dL (70-99) 123 mg/dL (70-99) 126 mg/dL (70-99) Test 10/04/20 21:51 10/05/20 07:37 10/05/20 11:30 10/05/20 16:43 Glucose (Fingerstick) 241 mg/dL (70-99) 302 mg/dL (70-99) 210 mg/dL (70-99) 62 mg/dL (70-99) Test 10/05/20 20:43 10/06/20 07:47 Glucose (Fingerstick) 221 mg/dL (70-99) 284 mg/dL (70-99) Laboratory Tests Test 10/05/20 11:30 10/05/20 16:43 10/05/20 20:43 10/06/20 07:47 Glucose (Fingerstick) 210 mg/dL (70-99) 62 mg/dL (70-99) 221 mg/dL (70-99) 284 mg/dL (70-99) Microbiology 10/03/20 Blood Culture - Preliminary, Resulted NO GROWTH AFTER 2 DAYS Medications Current Medications Ceftriaxone Sodium (Rocephin) 1 gm 1X ONCE IVP Last administered on 10/03/20at 11:57; Start 10/03/20 at 11:30; Stop 10/03/20 at 11:31; Status DC Iohexol (Omnipaque 350 Mg/ml) 100 ml 1X ONCE IV Last administered on 10/03/20at 13:29; Start 10/03/20 at 13:00; Stop 10/03/20 at 13:01; Status DC Info (CONTRAST GIVEN -- Rx MONITORING) 1 each PRN DAILY PRN MC SEE COMMENTS; Start 10/03/20 at 13:00; Stop 10/05/20 at 12:59; Status DC Dexamethasone Sodium Phosphate (Decadron) 10 mg 1X ONCE IVP Last administered on 10/03/20at 13:52; Start 10/03/20 at 13:00; Stop 10/03/20 at 13:01; Status DC Ceftriaxone Sodium (Rocephin) 1 gm 1X ONCE IVP ; Start 10/03/20 at 13:00; Stop 10/03/20 at 13:01; Status DC Ketorolac Tromethamine (Toradol 30mg Vial) 30 mg 1X ONCE IVP Last administered on 10/03/20at 13:51; Start 10/03/20 at 13:00; Stop 10/03/20 at 13:01; Status DC Doxycycline Hyclate 100 mg/ Dextrose 100 ml @ 50 mls/hr BID IV Last administered on 10/06/20at 08:27; Start 10/03/20 at 21:00; Stop 10/08/20 at 20:59 Doxycycline Hyclate 100 mg/ Dextrose 100 ml @ 50 mls/hr ONCE ONCE IV ; Start 10/03/20 at 15:00; Stop 10/03/20 at 16:59; Status DC Ondansetron HCl (Zofran) 4 mg PRN Q6HRS PRN IVP NAUSEA/VOMITING; Start 10/03/20 at 14:30 Prochlorperazine Edisylate (Compazine) 10 mg PRN Q6HRS PRN IVP NAUSEA/VOMITING 2ND CHOICE; Start 10/03/20 at 14:30 Al Hydroxide/Mg Hydroxide (Mylanta Plus Xs) 30 ml PRN Q3HRS PRN PO HEARTBURN / GAS; Start 10/03/20 at 14:30 Calcium Carbonate/ Glycine (Tums) 500 mg PRN Q3HRS PRN PO UPSET STOMACH; Start 10/03/20 at 14:30 Zolpidem Tartrate (Ambien) 5 mg PRN QHS PRN PO INSOMNIA, MAY REPEAT IN 1HR; Start 10/03/20 at 14:30 Morphine Sulfate (Morphine Sulfate) 2 mg PRN Q1HR PRN IV PAIN; Start 10/03/20 at 14:30 Acetaminophen (Tylenol) 650 mg PRN Q6HRS PRN PO Headaches, Temp > 101.5F; Start 10/03/20 at 14:30 Magnesium Hydroxide (Milk Of Magnesia) 2,400 mg PRN Q12HR PRN PO CONSTIPATION; Start 10/03/20 at 14:30 Bisacodyl (Dulcolax Supp) 10 mg PRN DAILY PRN [place] CONSTIPATION; Start 10/03/20 at 14:30 Enoxaparin Sodium (Lovenox 40mg Syringe) 40 mg Q24H SQ Last administered on 10/06/20at 08:27; Start 10/04/20 at 09:00 Insulin Glargine (Lantus Syringe) 10 unit QHS SQ ; Start 10/03/20 at 21:00; Stop 10/03/20 at 20:44; Status DC Insulin Human Lispro (HumaLOG) 0-7 UNITS TIDWMEALS SQ Last administered on 10/03/20at 18:17; Start 10/03/20 at 17:00; Stop 10/04/20 at 08:08; Status DC Dextrose (Dextrose 50%-Water Syringe) 12.5 gm PRN Q15MIN PRN IV SEE COMMENTS; Start 10/03/20 at 14:30 Sodium Chloride 1,000 ml @ 75 mls/hr CONT PRN IV SEE I/O Last administered on 10/03/20at 16:15; Start 10/03/20 at 14:30 Zinc Sulfate (Orazinc) 220 mg DAILY PO Last administered on 10/06/20at 08:27; Start 10/04/20 at 09:00 Ascorbic Acid (Vitamin C) 500 mg Q6HRS PO Last administered on 10/06/20at 06:02; Start 10/03/20 at 18:00 Vitamin D (Vitamin D3) 5,000 unit DAILY PO Last administered on 10/06/20at 08:26; Start 10/04/20 at 09:00 Diphenoxylate HCl/ Atropine (Lomotil) 1 tab PRN QID PRN PO DIARRHEA; Start 10/03/20 at 15:15 Insulin Human Lispro (HumaLOG) 5 units 1X ONCE SQ ; Start 10/03/20 at 18:30; Stop 10/03/20 at 18:31; Status DC Insulin Human Regular (HumuLIN R VIAL) 5 unit 1X ONCE IV Last administered on 10/03/20at 18:24; Start 10/03/20 at 18:30; Stop 10/03/20 at 18:32; Status DC Insulin Glargine (Lantus Syringe) 70 unit QHS SQ Last administered on 10/05/20at 20:46; Start 10/03/20 at 21:00 Tramadol HCl (Ultram) 50 mg PRN Q6HRS PRN PO PAIN Last administered on 10/06/20at 03:13; Start 10/03/20 at 20:45 Insulin Human Lispro (HumaLOG) 20 units 1X ONCE SQ Last administered on 10/04/20at 08:34; Start 10/04/20 at 08:15; Stop 10/04/20 at 08:25; Status DC Insulin Human Lispro (HumaLOG) 30 units TIDWMEALS SQ ; Start 10/04/20 at 12:00; Stop 10/04/20 at 10:20; Status DC Aspirin (Ecotrin) 81 mg DAILYWBKFT PO Last administered on 10/06/20 08:26; Start 10/04/20 at 12:00 Atorvastatin Calcium (Lipitor) 20 mg QHS PO Last administered on 10/05/20 20:26; Start 10/04/20 at 21:00 Insulin Human Lispro (HumaLOG) 30 units TIDWMEALS SQ Last administered on 10/06/20 08:42; Start 10/04/20 at 12:00 Multivitamins (Thera M Plus) 1 tab DAILY PO Last administered on 10/06/20 08:26; Start 10/04/20 at 12:00 Non-Formulary Medication (Nph, Human Insulin Isophane (Novolin N)) 70 unit HS SQ ; Start 10/04/20 at 21:00; Status UNV Pantoprazole Sodium (Protonix) 40 mg DAILYAC PO Last administered on 10/06/20 08:27; Start 10/05/20 at 07:30 Lactobacillus Rhamnosus (Culturelle) 1 cap BID PO Last administered on 10/06/20 08:26; Start 10/04/20 at 21:00 Throat Lozenges (Cepacol Sore Throat Lozenge) 1 elie PRN Q2HRS PRN PO SORE THROAT Last administered on 10/05/20 20:58; Start 10/05/20 at 14:30 Dexamethasone (Decadron) 4 mg DAILYWBKFT PO Last administered on 10/06/20 08:43; Start 10/05/20 at 15:00 Phenol (Chloraseptic) 1 spray PRN Q2HR PRN PO SORE THROAT Last administered on 10/05/20 17:23; Start 10/05/20 at 15:15 Enalaprilat (Vasotec Inj) 1.25 mg PRN Q6HRS PRN IVP ELEVATED BP, SEE COMMENTS; Start 10/06/20 at 08:30 Active Scripts Active Multivitamins (Multivitamin) 1 Each Tablet 1 Tab PO DAILY [Pantoprazole] 40 MG Tablet. 40 Mg PO DAILYAC 30 Days Aspirin Ec (Aspirin) 81 Mg Tablet. 81 Mg PO DAILYWBKFT 30 Days Atorvastatin Calcium 20 Mg Tablet 20 Mg PO QHS 30 Days Reported Novolin N (Nph, Human Insulin Isophane) 100 Unit/1 Ml Vial 70 Unit SQ HS Novolin R (Insulin Regular, Human) 100 Unit/1 Ml Vial 30 Unit IJ TIDWMEALS Vitals/I & O Vital Sign - Last 24 Hours 10/05/20 10/05/20 10/05/20 10/05/20 10:14 11:00 14:53 19:00 Temp 97.7 97.8 98.1 97.7 97.8 98.1 Pulse 78 83 82 Resp 19 18 16 B/P (MAP) 106/73 (84) 91/61 (71) 114/65 (81) Pulse Ox 98 97 98 O2 Delivery Room Air Room Air Room Air Room Air 10/05/20 10/05/20 10/06/20 10/06/20 20:00 22:26 03:01 03:13 Temp 97.8 98.3 97.8 98.3 Pulse 83 82 Resp 18 20 20 B/P (MAP) 117/69 (85) 114/71 (85) Pulse Ox 97 98 98 O2 Delivery Room Air Room Air Room Air Room Air 10/06/20 10/06/20 04:15 07:45 Temp 98.0 98.0 Pulse 76 Resp 20 18 B/P (MAP) 196/85 (122) Pulse Ox 98 97 O2 Delivery Room Air Room Air Intake and Output 10/05/20 10/05/20 10/06/20 15:00 23:00 07:00 Intake Total 700 ml 750 ml 300 ml Output Total 1300 ml 1200 ml 550 ml Balance -600 ml -450 ml -250 ml Justicifation of Admission Dx: Justifications for Admission: Justification of Admission Dx: Yes Comminuty Aquired Pneumonia: Hypoxemia VENECIA MINAYA MD Oct 06, 2020 09:57
[2020-10-06 10:04] LABS: ALBUMIN 3.1 g/dL (3.4-5.0); ALBUMIN/GLOBULIN RATIO 0.8 (1.0-1.7); CALCIUM 9.1 mg/dL (8.5-10.1); CREATININE 1.2 mg/dL (0.7-1.3); GFR 74.7; POTASSIUM 4.9 mmol/L (3.5-5.1); TOTAL BILIRUBIN 0.2 mg/dL (0.2-1.0)
[2020-10-06 10:53] VITALS: BP 139/86
[2020-10-06] MEDS: BENZOCAINE/MENTHOL LOZENGE. PO PRN (12:22)
--- NOTE | 2020-10-06 13:48 | PDOC ---
PULMONARY PROGRESS NOTES DATE: 10/06/20 TIME: 13:46 Subjective pt. is on room air Continues to have weakness and weak voice Denies any shortness of breath or cough no other concerns from nursing Vitals Vital Signs Date Time Temp Pulse Resp B/P (MAP) Pulse Ox O2 Delivery O2 Flow Rate FiO2 10/06/20 10:53 97.9 89 18 139/86 (103) 99 Room Air 97.9 ROS: No Nausea, No Chest Pain, No Abdominal Pain, No Increase Cough General: Alert, Oriented X4 Lungs: Clear Cardiovascular: S1, S2 Abdomen: Soft Neuro Exam: Alert Extremities: No Edema Skin: Warm Labs Laboratory Tests Test 10/04/20 16:46 10/04/20 17:52 10/04/20 21:51 10/05/20 07:37 Glucose (Fingerstick) 123 mg/dL (70-99) 126 mg/dL (70-99) 241 mg/dL (70-99) 302 mg/dL (70-99) Test 10/05/20 11:30 10/05/20 16:43 10/05/20 20:43 10/06/20 07:47 Glucose (Fingerstick) 210 mg/dL (70-99) 62 mg/dL (70-99) 221 mg/dL (70-99) 284 mg/dL (70-99) Test 10/06/20 08:38 10/06/20 11:39 White Blood Count 8.9 x10^3/uL (4.0-11.0) Red Blood Count 4.58 x10^6/uL (4.30-5.70) Hemoglobin 12.2 g/dL (13.0-17.5) Hematocrit 37.2 % (39.0-53.0) Mean Corpuscular Volume 81 fL (79-100) Mean Corpuscular Hemoglobin 27 pg (25-35) Mean Corpuscular Hemoglobin Concent 33 g/dL (31-37) Red Cell Distribution Width 14.9 % (11.5-14.5) Platelet Count 506 x10^3/uL (140-400) Neutrophils (%) (Auto) 80 % (31-73) Lymphocytes (%) (Auto) 13 % (24-48) Monocytes (%) (Auto) 6 % (0-9) Eosinophils (%) (Auto) 1 % (0-3) Basophils (%) (Auto) 1 % (0-3) Neutrophils # (Auto) 7.1 x10^3/uL (1.8-7.7) Lymphocytes # (Auto) 1.2 x10^3/uL (1.0-4.8) Monocytes # (Auto) 0.5 x10^3/uL (0.0-1.1) Eosinophils # (Auto) 0.1 x10^3/uL (0.0-0.7) Basophils # (Auto) 0.0 x10^3/uL (0.0-0.2) Sodium Level 138 mmol/L (136-145) Potassium Level 4.9 mmol/L (3.5-5.1) Chloride Level 103 mmol/L (98-107) Carbon Dioxide Level 26 mmol/L (21-32) Anion Gap 9 (6-14) Blood Urea Nitrogen 18 mg/dL (8-26) Creatinine 1.2 mg/dL (0.7-1.3) Estimated GFR (Cockcroft-Gault) 74.7 BUN/Creatinine Ratio 15 (6-20) Glucose Level 271 mg/dL (70-99) Calcium Level 9.1 mg/dL (8.5-10.1) Total Bilirubin 0.2 mg/dL (0.2-1.0) Aspartate Amino Transf (AST/SGOT) 10 U/L (15-37) Alanine Aminotransferase (ALT/SGPT) 11 U/L (16-63) Alkaline Phosphatase 74 U/L (46-116) Total Protein 7.0 g/dL (6.4-8.2) Albumin 3.1 g/dL (3.4-5.0) Albumin/Globulin Ratio 0.8 (1.0-1.7) Glucose (Fingerstick) 198 mg/dL (70-99) Laboratory Tests Test 10/05/20 16:43 10/05/20 20:43 10/06/20 07:47 10/06/20 08:38 Glucose (Fingerstick) 62 mg/dL (70-99) 221 mg/dL (70-99) 284 mg/dL (70-99) White Blood Count 8.9 x10^3/uL (4.0-11.0) Red Blood Count 4.58 x10^6/uL (4.30-5.70) Hemoglobin 12.2 g/dL (13.0-17.5) Hematocrit 37.2 % (39.0-53.0) Mean Corpuscular Volume 81 fL (79-100) Mean Corpuscular Hemoglobin 27 pg (25-35) Mean Corpuscular Hemoglobin Concent 33 g/dL (31-37) Red Cell Distribution Width 14.9 % (11.5-14.5) Platelet Count 506 x10^3/uL (140-400) Neutrophils (%) (Auto) 80 % (31-73) Lymphocytes (%) (Auto) 13 % (24-48) Monocytes (%) (Auto) 6 % (0-9) Eosinophils (%) (Auto) 1 % (0-3) Basophils (%) (Auto) 1 % (0-3) Neutrophils # (Auto) 7.1 x10^3/uL (1.8-7.7) Lymphocytes # (Auto) 1.2 x10^3/uL (1.0-4.8) Monocytes # (Auto) 0.5 x10^3/uL (0.0-1.1) Eosinophils # (Auto) 0.1 x10^3/uL (0.0-0.7) Basophils # (Auto) 0.0 x10^3/uL (0.0-0.2) Sodium Level 138 mmol/L (136-145) Potassium Level 4.9 mmol/L (3.5-5.1) Chloride Level 103 mmol/L (98-107) Carbon Dioxide Level 26 mmol/L (21-32) Anion Gap 9 (6-14) Blood Urea Nitrogen 18 mg/dL (8-26) Creatinine 1.2 mg/dL (0.7-1.3) Estimated GFR (Cockcroft-Gault) 74.7 BUN/Creatinine Ratio 15 (6-20) Glucose Level 271 mg/dL (70-99) Calcium Level 9.1 mg/dL (8.5-10.1) Total Bilirubin 0.2 mg/dL (0.2-1.0) Aspartate Amino Transf (AST/SGOT) 10 U/L (15-37) Alanine Aminotransferase (ALT/SGPT) 11 U/L (16-63) Alkaline Phosphatase 74 U/L (46-116) Total Protein 7.0 g/dL (6.4-8.2) Albumin 3.1 g/dL (3.4-5.0) Albumin/Globulin Ratio 0.8 (1.0-1.7) Test 10/06/20 11:39 Glucose (Fingerstick) 198 mg/dL (70-99) Medications Active Scripts Medications Dose Route/Sig Max Daily Dose Days Date Category Multivitamins (Multivitamin) 1 Each Tablet 1 Tab PO DAILY 09/10/18 Rx [Pantoprazole] 40 MG Tablet.dr 40 Mg PO DAILYAC 30 09/10/18 Rx Aspirin Ec (Aspirin) 81 Mg Tablet.dr 81 Mg PO DAILYWBKFT 30 09/10/18 Rx Atorvastatin Calcium 20 Mg Tablet 20 Mg PO QHS 30 09/10/18 Rx Novolin N (Nph, Human Insulin Isophane) 100 Unit/1 Ml Vial 70 Unit SQ HS 09/05/18 Reported Novolin R (Insulin Regular, Human) 100 Unit/1 Ml Vial 30 Unit IJ TIDWMEALS 09/05/18 Reported Comments CXR Impression: 1. Increased multifocal ill-defined opacities bilaterally. CTA chest IMPRESSION: 1. No evidence of pulmonary embolism. 2. Diffuse patchy airspace opacities identified in the bilateral lungs suspicious for infiltrates or atypical or viral/ covid pneumonia. Impression . IMPRESSION: 1. Dyspnea with diffuse bilateral patchy airspace opacities on a CT chest. Positive for COVID-19 viral pneumonia. He is on room air at present. 2. Abnormal CT chest with diffuse bilateral patchy airspace opacities suggestive of viral infection, likely COVID. He has known exposure. 3. No significant tobacco history. 4. Abnormal D-dimer. No evidence of pulmonary embolism. Likely D-dimer elevation is related to COVID-19. Plan . RECOMMENDATIONS: Supplemental oxygen if needed, currently on room air, stable from a pulmonary standpoint Covid-19 positive Start steroids will need full ten day course Continue ABX: on DOXY PT/OT DVT/GI PPX D/W RN Disposition: Patient could discharge in the next 24 to 48 hours, may need physical therapy outpatient/home health services Patient is stable from a pulmonary standpoint and we will see on a as needed basis please call with any questions or concerns RAMBO CURRY MD Oct 06, 2020 13:48
--- NOTE | 2020-10-06 14:37 | NUR ---
SS following up with discharge planning. SS reviewed pt chart and discussed with pt RN. Pt is currently on room air. COVID19 positive. Pt on IV Doxycycline. Self pay. Med Assist communicating with pt. Discharge plan is to home when medically ready. SS will continue to follow for discharge planning.
[2020-10-06 14:39] VITALS: BP 124/82
[2020-10-06 19:44] VITALS: BP 122/82
[2020-10-06] MEDS: INSULIN GLARGINE SYRINGE. SQ SCH (22:06)
[2020-10-06] MEDS: ATORVASTATIN CALCIUM 20 MG TABLET PO SCH (22:06)
[2020-10-06 22:19] VITALS: BP 139/82
[2020-10-07] MEDS: ASCORBIC ACID 500 MG TABLET PO SCH ×5 (00:22→22:13)
[2020-10-07 03:00] VITALS: BP 118/74
[2020-10-07] MEDS: BENZOCAINE/MENTHOL LOZENGE. PO PRN ×2 (03:06→20:33)
[2020-10-07] MEDS: MORPHINE SULFATE 2 MG/ML VIAL. IV PRN ×2 (03:06→23:16)
[2020-10-07 06:17] VITALS: BP 126/74
[2020-10-07] MEDS: CHOLECALCIFEROL (VITAMIN D3) 5,000 UNIT CAPSULE PO SCH (07:53)
[2020-10-07] MEDS: DOXYCYCLINE HYCLATE 100 MG in IV DEXTROSE 5% 100ML 100 ML IV SCH ×2 (07:53→20:33)
[2020-10-07] MEDS: LACTOBACILLUS RHAMNOSUS GG 1 CAPSULE. PO SCH ×2 (07:53→20:34)
[2020-10-07] MEDS: PANTOPRAZOLE 40 MG TABLET.DR. PO SCH (07:54)
[2020-10-07] MEDS: DEXAMETHASONE 4 MG TABLET PO SCH (07:54)
[2020-10-07] MEDS: ASPIRIN ENTERIC COATED 81 MG TABLET.DR. PO SCH (07:54)
[2020-10-07] MEDS: MULTIVITAMIN with MINERAL TABLET. PO SCH (07:54)
[2020-10-07] MEDS: ZINC SULFATE 220 MG CAPSULE. PO SCH (07:54)
[2020-10-07] MEDS: ENOXAPARIN 40 MG/0.4 ML SYRINGE. SQ SCH ×2 (07:55→20:34)
[2020-10-07] MEDS: INSULIN LISPRO 300 UNITS/3 ML VIAL. SQ SCH ×3 (08:24→18:31)
--- NOTE | 2020-10-07 10:38 | PDOC ---
[facility] PROGRESS NOTE Date of Service DOS: DATE: 10/07/20 TIME: 10:33 Chief Complaint Chief Complaint COVID positive Acute respiratory distress Bilateral opacities on chest CT Abnormal D dimer (elevated) DM2 CAD HTN HLD Hyperglycemia Thrombocytosis History of Present Illness History of Present Illness 10/07/2020 Patient seen and examined Patient resting comfortably in bed Discussed wtih RN Discussed with trimming caser Patient wants to leave today but RN states he is too weak for D/C today due to weakness and SOB History of Present Illness Patient is a 60-year-old male with past medical history DM2, who presents to the ER complaining of worsening of weakness for the past several days. He reports associated nausea, vomiting, fevers, and shortness of breath. This morning he fell to the floor and was barely able to crawl to his neighbors transfer assi stance, and was then brought to the ER for further evaluation. He has known COVID-19 exposure at work. Upon arrival he was tachycardic, and his chest x-ray showed diffuse bilateral opacities suspicious for COVID-19 viral pneumonia. He is very weak and I feel unable to care for himself at this time. Will admit patient for further management. Past Medical History Cardiovascular: CAD, HTN, Hyperlipidemia GI: GERD Psych: No pertinent hx Rheumatologic: No pertinent hx Renal/: Chronic renal insuff Endocrine: Diabetes Vitals/I&O Vitals/I&O: Vital Signs Date Time Temp Pulse Resp B/P (MAP) Pulse Ox O2 Delivery O2 Flow Rate FiO2 10/07/20 08:00 Room Air 10/07/20 06:17 97.4 83 16 126/74 (91) 98 97.4 I & O 10/06/20 10/06/20 10/07/20 15:00 23:00 07:00 Intake Total 180 ml 1440 ml 480 ml Output Total 800 ml 1600 ml 1000 ml Balance -620 ml -160 ml -520 ml Physical Exam Physical Exam: Physical Exam General: Alert, Oriented X3, Cooperative, lethargic HEENT: PERRLA, EOMI Lungs: Clear to auscultation, Normal air movement Heart: Tachycardic. No murmurs Cardiovascular: S1, S2 Abdomen: Normal bowel sounds, Soft, No tenderness Extremities: No clubbing, No cyanosis Skin: No rashes, No significant lesion Neuro: Normal speech, Normal tone, Sensation intact Psych/Mental Status: Mental status NL, Mood NL General: Alert, Cooperative Heart: Regular rate, No murmurs Lungs: Clear Abdomen: Normal bowel sounds, No tenderness Extremities: No cyanosis Labs Labs: Laboratory Tests Test 10/06/20 11:39 10/06/20 15:46 10/06/20 20:37 10/07/20 08:04 Glucose (Fingerstick) 198 mg/dL (70-99) 107 mg/dL (70-99) 407 mg/dL (70-99) 236 mg/dL (70-99) Assessment and Plan Assessmemt and Plan ASSESSMENT COVID positive Acute respiratory distress Bilateral opacities on chest CT Abnormal D dimer (elevated) DM2 CAD HTN HLD Hyperglycemia Thrombocytosis PLAN Discharge disposition pending Continue ICU monitoring Continue medications DVT ppx (Lovenox) Home meds Trend labs Full code Comment Review of Relevant I have reviewed the following items prasahnt (where applicable) has been applied. Justifications for Admission Other Justification Weakness, physical debility, atypical pneumonia, COVID-19 TERRANCE HIGH III DO Oct 07, 2020 10:38
[2020-10-07 11:00] VITALS: BP 144/83
--- NOTE | 2020-10-07 13:52 | PDOC ---
PULMONARY PROGRESS NOTES DATE: 10/07/20 TIME: 13:51 Subjective pt. is on room air feeling better today Denies any shortness of breath or cough no other concerns from nursing Vitals Vital Signs Date Time Temp Pulse Resp B/P (MAP) Pulse Ox O2 Delivery O2 Flow Rate FiO2 10/07/20 11:00 97.1 94 17 144/83 (103) 98 Room Air 97.1 ROS: No Nausea, No Chest Pain, No Abdominal Pain, No Increase Cough General: Alert, Oriented X4 Lungs: Clear Cardiovascular: S1, S2 Abdomen: Soft Neuro Exam: Alert Extremities: No Edema Skin: Warm Labs Laboratory Tests Test 10/05/20 16:43 10/05/20 20:43 10/06/20 07:47 10/06/20 08:38 Glucose (Fingerstick) 62 mg/dL (70-99) 221 mg/dL (70-99) 284 mg/dL (70-99) White Blood Count 8.9 x10^3/uL (4.0-11.0) Red Blood Count 4.58 x10^6/uL (4.30-5.70) Hemoglobin 12.2 g/dL (13.0-17.5) Hematocrit 37.2 % (39.0-53.0) Mean Corpuscular Volume 81 fL (79-100) Mean Corpuscular Hemoglobin 27 pg (25-35) Mean Corpuscular Hemoglobin Concent 33 g/dL (31-37) Red Cell Distribution Width 14.9 % (11.5-14.5) Platelet Count 506 x10^3/uL (140-400) Neutrophils (%) (Auto) 80 % (31-73) Lymphocytes (%) (Auto) 13 % (24-48) Monocytes (%) (Auto) 6 % (0-9) Eosinophils (%) (Auto) 1 % (0-3) Basophils (%) (Auto) 1 % (0-3) Neutrophils # (Auto) 7.1 x10^3/uL (1.8-7.7) Lymphocytes # (Auto) 1.2 x10^3/uL (1.0-4.8) Monocytes # (Auto) 0.5 x10^3/uL (0.0-1.1) Eosinophils # (Auto) 0.1 x10^3/uL (0.0-0.7) Basophils # (Auto) 0.0 x10^3/uL (0.0-0.2) Sodium Level 138 mmol/L (136-145) Potassium Level 4.9 mmol/L (3.5-5.1) Chloride Level 103 mmol/L (98-107) Carbon Dioxide Level 26 mmol/L (21-32) Anion Gap 9 (6-14) Blood Urea Nitrogen 18 mg/dL (8-26) Creatinine 1.2 mg/dL (0.7-1.3) Estimated GFR (Cockcroft-Gault) 74.7 BUN/Creatinine Ratio 15 (6-20) Glucose Level 271 mg/dL (70-99) Calcium Level 9.1 mg/dL (8.5-10.1) Total Bilirubin 0.2 mg/dL (0.2-1.0) Aspartate Amino Transf (AST/SGOT) 10 U/L (15-37) Alanine Aminotransferase (ALT/SGPT) 11 U/L (16-63) Alkaline Phosphatase 74 U/L (46-116) Total Protein 7.0 g/dL (6.4-8.2) Albumin 3.1 g/dL (3.4-5.0) Albumin/Globulin Ratio 0.8 (1.0-1.7) Test 10/06/20 11:39 10/06/20 15:46 10/06/20 20:37 10/07/20 08:04 Glucose (Fingerstick) 198 mg/dL (70-99) 107 mg/dL (70-99) 407 mg/dL (70-99) 236 mg/dL (70-99) Test 10/07/20 12:49 Glucose (Fingerstick) 105 mg/dL (70-99) Laboratory Tests Test 10/06/20 15:46 10/06/20 20:37 10/07/20 08:04 10/07/20 12:49 Glucose (Fingerstick) 107 mg/dL (70-99) 407 mg/dL (70-99) 236 mg/dL (70-99) 105 mg/dL (70-99) Medications Active Scripts Medications Dose Route/Sig Max Daily Dose Days Date Category Multivitamins (Multivitamin) 1 Each Tablet 1 Tab PO DAILY 09/10/18 Rx [Pantoprazole] 40 MG Tablet.dr 40 Mg PO DAILYAC 30 09/10/18 Rx Aspirin Ec (Aspirin) 81 Mg Tablet. 81 Mg PO DAILYWBKFT 30 09/10/18 Rx Atorvastatin Calcium 20 Mg Tablet 20 Mg PO QHS 30 09/10/18 Rx Novolin N (Nph, Human Insulin Isophane) 100 Unit/1 Ml Vial 70 Unit SQ HS 09/05/18 Reported Novolin R (Insulin Regular, Human) 100 Unit/1 Ml Vial 30 Unit IJ TIDWMEALS 09/05/18 Reported Comments CXR Impression: 1. Increased multifocal ill-defined opacities bilaterally. CTA chest IMPRESSION: 1. No evidence of pulmonary embolism. 2. Diffuse patchy airspace opacities identified in the bilateral lungs suspicious for infiltrates or atypical or viral/ covid pneumonia. Impression . IMPRESSION: 1. Dyspnea with diffuse bilateral patchy airspace opacities on a CT chest. Positive for COVID-19 viral pneumonia. He is on room air at present. 2. Abnormal CT chest with diffuse bilateral patchy airspace opacities suggestive of viral infection, likely COVID. He has known exposure. 3. No significant tobacco history. 4. Abnormal D-dimer. No evidence of pulmonary embolism. Likely D-dimer elevation is related to COVID-19. Plan . RECOMMENDATIONS: Supplemental oxygen if needed, currently on room air, stable from a pulmonary standpoint Covid-19 positive Start steroids will need full ten day course Continue ABX: on DOXY PT/OT DVT/GI PPX D/W RN ok to discharge today from our standpoint Patient is stable from a pulmonary standpoint and we will see on a as needed basis please call with any questions or concerns RAMBO CURRY MD Oct 07, 2020 13:52
--- NOTE | 2020-10-07 13:58 | NUR ---
SS following up with discharge planning. SS reviewed pt chart and discussed with pt RN. Pt is currently on room air. COVID19 positive. Pt on IV Doxycycline. Self pay. Med Assist communicating with pt. Pt having weakness. PT/OT recommending acute rehabilitation. Pt reporting that he has three flights of stairs. Discharge plan is to home when medically ready. SS will continue to follow for discharge planning.
[2020-10-07 15:00] VITALS: BP 140/90
[2020-10-07 19:23] VITALS: BP 112/76
[2020-10-07] MEDS: traMADol 50 MG TABLET PO PRN (20:33)
[2020-10-07] MEDS: ATORVASTATIN CALCIUM 20 MG TABLET PO SCH (20:34)
[2020-10-07] MEDS: INSULIN GLARGINE SYRINGE. SQ SCH (21:36)
[2020-10-07 22:00] VITALS: BP 119/80
[2020-10-07] MEDS: ACETAMINOPHEN 325 MG TABLET. PO PRN (23:16)
[2020-10-08 03:40] VITALS: BP 131/76
[2020-10-08] MEDS: ASCORBIC ACID 500 MG TABLET PO SCH ×4 (05:59→22:18)
[2020-10-08 07:00] VITALS: BP 119/81
[2020-10-08] MEDS: LACTOBACILLUS RHAMNOSUS GG 1 CAPSULE. PO SCH ×2 (08:42→22:14)
[2020-10-08] MEDS: DEXAMETHASONE 4 MG TABLET PO SCH (08:42)
[2020-10-08] MEDS: PANTOPRAZOLE 40 MG TABLET.DR. PO SCH (08:42)
[2020-10-08] MEDS: CHOLECALCIFEROL (VITAMIN D3) 5,000 UNIT CAPSULE PO SCH (08:43)
[2020-10-08] MEDS: ASPIRIN ENTERIC COATED 81 MG TABLET.DR. PO SCH (08:43)
[2020-10-08] MEDS: ENOXAPARIN 40 MG/0.4 ML SYRINGE. SQ SCH ×2 (08:43→22:14)
[2020-10-08] MEDS: MULTIVITAMIN with MINERAL TABLET. PO SCH (08:43)
[2020-10-08] MEDS: ZINC SULFATE 220 MG CAPSULE. PO SCH (08:43)
[2020-10-08] MEDS: DOXYCYCLINE HYCLATE 100 MG in IV DEXTROSE 5% 100ML 100 ML IV SCH (08:44)
[2020-10-08] MEDS: INSULIN LISPRO 300 UNITS/3 ML VIAL. SQ SCH ×4 (09:05→17:07)
--- NOTE | 2020-10-08 10:01 | PDOC ---
[facility] PROGRESS NOTE Date of Service DOS: DATE: 10/08/20 TIME: 10:00 Chief Complaint Chief Complaint COVID positive Acute respiratory failure Bilateral opacities on chest CT Abnormal D dimer (elevated) DM2 CAD HTN HLD Hyperglycemia Thrombocytosis History of Present Illness History of Present Illness 10/08/2020 Patient seen and examined Discussed with RN Chart reviewed 10/07/2020 Patient seen and examined Patient resting comfortably in bed Discussed wtih RN Discussed with geriatric case manager Patient wants to leave today but RN states he is too weak for D/C today due to weakness and SOB History of Present Illness Patient is a 60-year-old male with past medical history DM2, who presents to the ER complaining of worsening of weakness for the past several days. He reports associated nausea, vomiting, fevers, and shortness of breath. This morning he fell to the floor and was barely able to crawl to his neighbors transfer assistance, and was then brought to the ER for further evaluation. He has known COVID-19 exposure at work. Upon arrival he was tachycardic, and his chest x-ray showed diffuse bilateral opacities suspicious for COVID-19 viral pneumonia. He is very weak and I feel unable to care for himself at this time. Will admit patient for further management. Past Medical History Cardiovascular: CAD, HTN, Hyperlipidemia GI: GERD Psych: No pertinent hx Rheumatologic: No pertinent hx Renal/: Chronic renal insuff Endocrine: Diabetes Vitals/I&O Vitals/I&O: Vital Signs Date Time Temp Pulse Resp B/P (MAP) Pulse Ox O2 Delivery O2 Flow Rate FiO2 10/08/20 08:25 Room Air 10/08/20 07:00 97.2 78 16 119/81 (94) 98 97.2 I & O 10/07/20 10/07/20 10/08/20 15:00 23:00 07:00 Intake Total 300 ml 400 ml 880 ml Output Total 1200 ml 1200 ml 750 ml Balance -900 ml -800 ml 130 ml Physical Exam Physical Exam: Physical Exam General: Alert, Oriented X3, Cooperative, lethargic HEENT: PERRLA, EOMI Lungs: Clear to auscultation, Normal air movement Heart: Tachycardic. No murmurs Cardiovascular: S1, S2 Abdomen: Normal bowel sounds, Soft, No tenderness Extremities: No clubbing, No cyanosis Skin: No rashes, No significant lesion Neuro: Normal speech, Normal tone, Sensation intact Psych/Mental Status: Mental status NL, Mood NL General: Alert, Cooperative Heart: Regular rate, No murmurs Lungs: Clear Abdomen: Normal bowel sounds, No tenderness Extremities: No cyanosis Labs Labs: Laboratory Tests Test 10/07/20 12:49 10/07/20 21:12 10/08/20 07:38 Glucose (Fingerstick) 105 mg/dL (70-99) 156 mg/dL (70-99) 212 mg/dL (70-99) Assessment and Plan Assessmemt and Plan COVID positive Acute respiratory failure Bilateral opacities on chest CT Abnormal D dimer (elevated) DM2 CAD HTN HLD Hyperglycemia Thrombocytosis PLAN Continue engine monitor Covid protocol Continue other medications DVT ppx (Lovenox) Home meds Trend labs Full code Appreciate subspecialist input Comment Review of Relevant I have reviewed the following items prashant (where applicable) has been applied. Medications: Current Medications Medications (Trade) Dose Ordered Sig/Magali Route PRN Reason Start Time Stop Time Status Last Admin Dose Admin Enoxaparin Sodium (Lovenox 40mg Syringe) 40 mg BID SQ 10/07/20 21:00 10/08/20 08:43 Justifications for Admission Other Justification Weakness, physical debility, atypical pneumonia, COVID-19 TERRANCE HIGH III DO Oct 08, 2020 10:01
[2020-10-08 11:00] VITALS: BP 128/72
[2020-10-08 15:00] VITALS: BP 114/79
[2020-10-08 19:00] VITALS: BP 129/75
[2020-10-08] MEDS: INSULIN GLARGINE SYRINGE. SQ SCH (22:13)
[2020-10-08] MEDS: ATORVASTATIN CALCIUM 20 MG TABLET PO SCH (22:15)
[2020-10-08] MEDS: BENZOCAINE/MENTHOL LOZENGE. PO PRN (22:15)
[2020-10-08 23:00] VITALS: BP 114/72
[2020-10-09 03:27] VITALS: BP 119/76
[2020-10-09 07:00] VITALS: BP 103/69
[2020-10-09] MEDS: CHOLECALCIFEROL (VITAMIN D3) 5,000 UNIT CAPSULE PO SCH (08:44)
[2020-10-09] MEDS: ASCORBIC ACID 500 MG TABLET PO SCH ×4 (08:44→23:44)
[2020-10-09] MEDS: ASPIRIN ENTERIC COATED 81 MG TABLET.DR. PO SCH (08:44)
[2020-10-09] MEDS: ZINC SULFATE 220 MG CAPSULE. PO SCH (08:44)
[2020-10-09] MEDS: MULTIVITAMIN with MINERAL TABLET. PO SCH (08:44)
[2020-10-09] MEDS: DEXAMETHASONE 4 MG TABLET PO SCH (08:44)
[2020-10-09] MEDS: LACTOBACILLUS RHAMNOSUS GG 1 CAPSULE. PO SCH ×2 (08:44→20:24)
[2020-10-09] MEDS: PANTOPRAZOLE 40 MG TABLET.DR. PO SCH (08:45)
[2020-10-09] MEDS: ENOXAPARIN 40 MG/0.4 ML SYRINGE. SQ SCH ×2 (08:45→20:24)
[2020-10-09] MEDS: INSULIN LISPRO 300 UNITS/3 ML VIAL. SQ SCH ×3 (08:49→17:52)
--- NOTE | 2020-10-09 10:47 | PDOC ---
PROGRESS NOTES Date of Service: DATE: 10/09/20 TIME: 10:46 Chief Complaint Chief Complaint IMPRESSION COVID positive Acute respiratory failure Bilateral opacities on chest CT Abnormal D dimer (elevated) DM2 CAD HTN HLD Hyperglycemia Thrombocytosis GENERALIZED WEAKNESS, slow to improve, unable to ambulate into apartment 2nd floor History of Present Illness History of Present Illness 10/09/2020 Patient seen and examined Discussed with RN Chart reviewed remains weak 10/07/2020 Patient seen and examined Patient resting comfortably in bed Discussed wtih RN Discussed with supportive employment case manager Patient wants to leave today but RN states he is too weak for D/C today due to weakness and SOB History of Present Illness Patient is a 60-year-old male with past medical history DM2, who presents to the ER complaining of worsening of weakness for the past several days. He reports associated nausea, vomiting, fevers, and shortness of breath. This morning he fell to the floor and was barely able to crawl to his neighbors transfer assistance, and was then brought to the ER for further evaluation. He has known COVID-19 exposure at work. Upon arrival he was tachycardic, and his chest x-ray showed diffuse bilateral opacities suspicious for COVID-19 viral pneumonia. He is very weak and I feel unable to care for himself at this time. Will admit patient for further management. Past Medical History Cardiovascular: CAD, HTN, Hyperlipidemia GI: GERD Psych: No pertinent hx Rheumatologic: No pertinent hx Renal/: Chronic renal insuff Endocrine: Diabetes Vitals Vitals Vital Signs Date Time Temp Pulse Resp B/P (MAP) Pulse Ox O2 Delivery O2 Flow Rate FiO2 10/09/20 08:23 Room Air 10/09/20 07:00 97.4 87 18 103/69 (80) 95 97.4 Physical Exam Physical Exam Physical Exam General: Alert, Oriented X3, Cooperative, sitting bedside chair HEENT: PERRLA, EOMI Lungs: Clear to auscultation, Normal air movement Heart: Tachycardic. No murmurs Cardiovascular: S1, S2 Abdomen: Normal bowel sounds, Soft, No tenderness Extremities: No clubbing, No cyanosis Skin: No rashes, No significant lesion Neuro: Normal speech, Normal tone, Sensation intact Psych/Mental Status: Mental status NL, Mood NL General: Alert, Oriented X3, Cooperative, No acute distress Heart: Regular rate, No murmurs Lungs: Clear Abdomen: Normal bowel sounds, No tenderness Extremities: No clubbing, No cyanosis Skin: No rashes Labs LABS * LB dressing Goal 2 Equipment: * None Goal 2 Required Assistance Level * Independent * Seated * Standing Goal 2 Assessment * Appropriate - Continue Goal 3: Pt will be able to complete: * grooming/hyg Goal 3 Equipment * None Goal 3 Required Assistance Level * Independent * Standing Goal 3 Assessment * Appropriate - Continue Goal 4 - Pt will be able to complete: * toileting Goal 4 Equipment * None Goal 4 Required Assistance Level * Independent * Seated * Standing Goal 4 Assessment * Appropriate - Continue Goal 5 - Pt. will be able to complete: * BUE HEP with resistance as tolerated Goal 5 Required Assistance Level * Independent * Seated Goal 5 Assessment * Appropriate - Continue Skilled interventions required to achieve goals * Activity keena. training * ADL training/education * Adaptive equip. training * Balance training for ADL * Compensatory techniques * Coordination training/ed. * Discharge planning * Functional mobility train * Home exercise prog * Precautions training * Safety education * Therapeutic Ex. * Transfer training for ADL * Visual/perceptual trainin Discharge Recommendations * Acute Rehab facility Discharge Recommendation - DME * Rolling Walker needed * in order to complete ADLs * and ambulation safely Laboratory Tests Test 10/08/20 12:03 10/08/20 16:58 10/08/20 20:28 10/09/20 08:38 Glucose (Fingerstick) 117 mg/dL (70-99) 201 mg/dL (70-99) 314 mg/dL (70-99) 266 mg/dL (70-99) Comment Review of Relevant I have reviewed the following items prashant (where applicable) has been applied. Labs Laboratory Tests Test 10/07/20 12:49 10/07/20 21:12 10/08/20 07:38 10/08/20 12:03 Glucose (Fingerstick) 105 mg/dL (70-99) 156 mg/dL (70-99) 212 mg/dL (70-99) 117 mg/dL (70-99) Test 10/08/20 16:58 10/08/20 20:28 10/09/20 08:38 Glucose (Fingerstick) 201 mg/dL (70-99) 314 mg/dL (70-99) 266 mg/dL (70-99) Laboratory Tests Test 10/08/20 12:03 10/08/20 16:58 10/08/20 20:28 10/09/20 08:38 Glucose (Fingerstick) 117 mg/dL (70-99) 201 mg/dL (70-99) 314 mg/dL (70-99) 266 mg/dL (70-99) Microbiology 10/03/20 Blood Culture - Final, Complete NO GROWTH AFTER 5 DAYS Medications Current Medications Ceftriaxone Sodium (Rocephin) 1 gm 1X ONCE IVP Last administered on 10/03/20at 11:57; Start 10/03/20 at 11:30; Stop 10/03/20 at 11:31; Status DC Iohexol (Omnipaque 350 Mg/ml) 100 ml 1X ONCE IV Last administered on 10/03/20at 13:29; Start 10/03/20 at 13:00; Stop 10/03/20 at 13:01; Status DC Info (CONTRAST GIVEN -- Rx MONITORING) 1 each PRN DAILY PRN MC SEE COMMENTS; Start 10/03/20 at 13:00; Stop 10/05/20 at 12:59; Status DC Dexamethasone Sodium Phosphate (Decadron) 10 mg 1X ONCE IVP Last administered on 10/03/20at 13:52; Start 10/03/20 at 13:00; Stop 10/03/20 at 13:01; Status DC Ceftriaxone Sodium (Rocephin) 1 gm 1X ONCE IVP ; Start 10/03/20 at 13:00; Stop 10/03/20 at 13:01; Status DC Ketorolac Tromethamine (Toradol 30mg Vial) 30 mg 1X ONCE IVP Last administered on 10/03/20at 13:51; Start 10/03/20 at 13:00; Stop 10/03/20 at 13:01; Status DC Doxycycline Hyclate 100 mg/ Dextrose 100 ml @ 50 mls/hr BID IV Last administered on 10/08/20at 08:44; Start 10/03/20 at 21:00; Stop 10/08/20 at 20:59; Status DC Doxycycline Hyclate 100 mg/ Dextrose 100 ml @ 50 mls/hr ONCE ONCE IV ; Start 10/03/20 at 15:00; Stop 10/03/20 at 16:59; Status DC Ondansetron HCl (Zofran) 4 mg PRN Q6HRS PRN IVP NAUSEA/VOMITING; Start 10/03/20 at 14:30 Prochlorperazine Edisylate (Compazine) 10 mg PRN Q6HRS PRN IVP NAUSEA/VOMITING 2ND CHOICE; Start 10/03/20 at 14:30 Al Hydroxide/Mg Hydroxide (Mylanta Plus Xs) 30 ml PRN Q3HRS PRN PO HEARTBURN / GAS; Start 10/03/20 at 14:30 Calcium Carbonate/ Glycine (Tums) 500 mg PRN Q3HRS PRN PO UPSET STOMACH; Start 10/03/20 at 14:30 Zolpidem Tartrate (Ambien) 5 mg PRN QHS PRN PO INSOMNIA, MAY REPEAT IN 1HR; Start 10/03/20 at 14:30 Morphine Sulfate (Morphine Sulfate) 2 mg PRN Q1HR PRN IV PAIN Last administered on 10/07/20at 23:16; Start 10/03/20 at 14:30 Acetaminophen (Tylenol) 650 mg PRN Q6HRS PRN PO Headaches, Temp > 101.5F Last administered on 10/07/20at 23:16; Start 10/03/20 at 14:30 Magnesium Hydroxide (Milk Of Magnesia) 2,400 mg PRN Q12HR PRN PO CONSTIPATION; Start 10/03/20 at 14:30 Bisacodyl (Dulcolax Supp) 10 mg PRN DAILY PRN NC CONSTIPATION; Start 10/03/20 at 14:30 Enoxaparin Sodium (Lovenox 40mg Syringe) 40 mg Q24H SQ Last administered on 10/07/20at 07:55; Start 10/04/20 at 09:00; Stop 10/07/20 at 16:07; Status DC Insulin Glargine (Lantus Syringe) 10 unit QHS SQ ; Start 10/03/20 at 21:00; Stop 10/03/20 at 20:44; Status DC Insulin Human Lispro (HumaLOG) 0-7 UNITS TIDWMEALS SQ Last administered on 10/03/20at 18:17; Start 10/03/20 at 17:00; Stop 10/04/20 at 08:08; Status DC Dextrose (Dextrose 50%-Water Syringe) 12.5 gm PRN Q15MIN PRN IV SEE COMMENTS; Start 10/03/20 at 14:30 Sodium Chloride 1,000 ml @ 75 mls/hr CONT PRN IV SEE I/O Last administered on 10/03/20at 16:15; Start 10/03/20 at 14:30 Zinc Sulfate (Orazinc) 220 mg DAILY PO Last administered on 10/09/20 08:44; Start 10/04/20 at 09:00 Ascorbic Acid (Vitamin C) 500 mg Q6HRS PO Last administered on 10/09/20 08:44; Start 10/03/20 at 18:00 Vitamin D (Vitamin D3) 5,000 unit DAILY PO Last administered on 10/09/20 08:44; Start 10/04/20 at 09:00 Diphenoxylate HCl/ Atropine (Lomotil) 1 tab PRN QID PRN PO DIARRHEA; Start 10/03/20 at 15:15 Insulin Human Lispro (HumaLOG) 5 units 1X ONCE SQ ; Start 10/03/20 at 18:30; Stop 10/03/20 at 18:31; Status DC Insulin Human Regular (HumuLIN R VIAL) 5 unit 1X ONCE IV Last administered on 10/03/20at 18:24; Start 10/03/20 at 18:30; Stop 10/03/20 at 18:32; Status DC Insulin Glargine (Lantus Syringe) 70 unit QHS SQ Last administered on 10/08/20 22:13; Start 10/03/20 at 21:00 Tramadol HCl (Ultram) 50 mg PRN Q6HRS PRN PO PAIN Last administered on 10/07/20at 20:33; Start 10/03/20 at 20:45 Insulin Human Lispro (HumaLOG) 20 units 1X ONCE SQ Last administered on 10/04/20at 08:34; Start 10/04/20 at 08:15; Stop 10/04/20 at 08:25; Status DC Insulin Human Lispro (HumaLOG) 30 units TIDWMEALS SQ ; Start 10/04/20 at 12:00; Stop 10/04/20 at 10:20; Status DC Aspirin (Ecotrin) 81 mg DAILYWBKFT PO Last administered on 10/09/20 08:44; Start 10/04/20 at 12:00 Atorvastatin Calcium (Lipitor) 20 mg QHS PO Last administered on 10/08/20 22:15; Start 10/04/20 at 21:00 Insulin Human Lispro (HumaLOG) 30 units TIDWMEALS SQ Last administered on 08:49; Start 10/04/20 at 12:00 Multivitamins (Thera M Plus) 1 tab DAILY PO Last administered on 10/09/20 08:44; Start 10/04/20 at 12:00 Non-Formulary Medication (Nph, Human Insulin Isophane (Novolin N)) 70 unit HS SQ ; Start 10/04/20 at 21:00; Status UNV Pantoprazole Sodium (Protonix) 40 mg DAILYAC PO Last administered on 10/09/20 08:45; Start 10/05/20 at 07:30 Lactobacillus Rhamnosus (Culturelle) 1 cap BID PO Last administered on 10/09/20 08:44; Start 10/04/20 at 21:00 Throat Lozenges (Cepacol Sore Throat Lozenge) 1 elie PRN Q2HRS PRN PO SORE THROAT Last administered on 10/08/20 22:15; Start 10/05/20 at 14:30 Dexamethasone (Decadron) 4 mg DAILYWBKFT PO Last administered on 10/09/20 08:44; Start 10/05/20 at 15:00 Phenol (Chloraseptic) 1 spray PRN Q2HR PRN PO SORE THROAT Last administered on 10/05/20at 17:23; Start 10/05/20 at 15:15 Enalaprilat (Vasotec Inj) 1.25 mg PRN Q6HRS PRN IVP ELEVATED BP, SEE COMMENTS; Start 10/06/20 at 08:30 Enoxaparin Sodium (Lovenox 40mg Syringe) 40 mg BID SQ Last administered on 10/09/20 08:45; Start 10/07/20 at 21:00 Active Scripts Active Multivitamins (Multivitamin) 1 Each Tablet 1 Tab PO DAILY [Pantoprazole] 40 MG Tablet. 40 Mg PO DAILYAC 30 Days Aspirin Ec (Aspirin) 81 Mg Tablet. 81 Mg PO DAILYWBKFT 30 Days Atorvastatin Calcium 20 Mg Tablet 20 Mg PO QHS 30 Days Reported Novolin N (Nph, Human Insulin Isophane) 100 Unit/1 Ml Vial 70 Unit SQ HS Novolin R (Insulin Regular, Human) 100 Unit/1 Ml Vial 30 Unit IJ TIDWMEALS Vitals/I & O Vital Sign - Last 24 Hours 10/08/20 10/08/20 10/08/20 10/08/20 11:00 15:00 19:00 20:00 Temp 97.7 97.9 97.8 97.7 97.9 97.8 Pulse 87 83 112 Resp 16 16 18 B/P (MAP) 128/72 (90) 114/79 (91) 129/75 (93) Pulse Ox 98 98 100 O2 Delivery Room Air Room Air Room Air Room Air 10/08/20 10/09/20 10/09/20 10/09/20 23:00 03:27 07:00 08:23 Temp 97.9 98.4 97.4 97.9 98.4 97.4 Pulse 97 80 87 Resp 18 20 18 B/P (MAP) 114/72 (86) 119/76 (90) 103/69 (80) Pulse Ox 99 100 95 O2 Delivery Room Air Room Air Room Air Room Air Intake and Output 10/08/20 10/08/20 10/09/20 15:00 23:00 07:00 Intake Total 100 ml 350 ml 420 ml Output Total 500 ml 1450 ml Balance 100 ml -150 ml -1030 ml Justicifation of Admission Dx: Justifications for Admission: Justification of Admission Dx: Yes Comminuty Aquired Pneumonia: Hypoxemia VENECIA MINAYA MD Oct 09, 2020 10:47
[2020-10-09 11:00] VITALS: BP 130/78
[2020-10-09 15:00] VITALS: BP 113/78
[2020-10-09] MEDS: BENZOCAINE/MENTHOL LOZENGE. PO PRN (15:34)
[2020-10-09 19:36] VITALS: BP 121/74
[2020-10-09] MEDS: ATORVASTATIN CALCIUM 20 MG TABLET PO SCH (20:24)
[2020-10-09] MEDS: ACETAMINOPHEN 325 MG TABLET. PO PRN (20:24)
[2020-10-09] MEDS: INSULIN GLARGINE SYRINGE. SQ SCH (20:40)
[2020-10-09 23:04] VITALS: BP 119/78
[2020-10-10 03:59] VITALS: BP 127/90
[2020-10-10] MEDS: ASCORBIC ACID 500 MG TABLET PO SCH ×3 (05:47→18:48)
[2020-10-10 06:12] VITALS: BP 122/65
[2020-10-10 06:12] LABS: ALBUMIN 3.2 g/dL (3.4-5.0); ALBUMIN/GLOBULIN RATIO 0.9 (1.0-1.7); CREATININE 1.5 mg/dL (0.7-1.3); GFR 57.8; POTASSIUM 4.7 mmol/L (3.5-5.1); TOTAL BILIRUBIN 0.2 mg/dL (0.2-1.0); TOTAL PROTEIN 6.6 g/dL (6.4-8.2)
[2020-10-10 06:49] LABS: BASO % 0 % (0-3); EOS % 0 % (0-3); HEMATOCRIT 36.2 % (39.0-53.0); HEMOGLOBIN 11.8 g/dL (13.0-17.5); LYMPH # 1.7 x10^3/uL (1.0-4.8); LYMPH % 11 % (24-48); MEAN CORPUSCULAR HEMOGLOBIN 27 pg (25-35); MEAN CORPUSCULAR HGB CONC 33 g/dL (31-37); MEAN CORPUSCULAR VOLUME 82 fL (79-100); MONO % 6 % (0-9); NEUT # 12.5 x10^3/uL (1.8-7.7); NEUT % 82 % (31-73); PLATELET COUNT 501 x10^3/uL (140-400); RED CELL DISTRIBUTION WIDTH 15.3 % (11.5-14.5); WHITE BLOOD COUNT 15.3 x10^3/uL (4.0-11.0)
[2020-10-10] MEDS: MULTIVITAMIN with MINERAL TABLET. PO SCH (08:58)
[2020-10-10] MEDS: CHOLECALCIFEROL (VITAMIN D3) 5,000 UNIT CAPSULE PO SCH (08:58)
[2020-10-10] MEDS: ASPIRIN ENTERIC COATED 81 MG TABLET.DR. PO SCH (08:58)
[2020-10-10] MEDS: PANTOPRAZOLE 40 MG TABLET.DR. PO SCH (08:58)
[2020-10-10] MEDS: LACTOBACILLUS RHAMNOSUS GG 1 CAPSULE. PO SCH ×2 (08:58→20:10)
[2020-10-10] MEDS: ENOXAPARIN 40 MG/0.4 ML SYRINGE. SQ SCH ×2 (08:58→20:17)
[2020-10-10] MEDS: DEXAMETHASONE 4 MG TABLET PO SCH (08:58)
[2020-10-10] MEDS: ZINC SULFATE 220 MG CAPSULE. PO SCH (08:58)
[2020-10-10] MEDS: INSULIN LISPRO 300 UNITS/3 ML VIAL. SQ SCH ×3 (09:00→18:49)
[2020-10-10 10:05] LABS: % BANDS 2 % (0-9); % LYMPHS 8 % (24-48); % MONOS 1 % (0-10); % SEGS 89 % (35-66); PLT ESTIMATE INCREASED (ADEQUATE)
[2020-10-10 11:30] VITALS: BP 116/68
--- NOTE | 2020-10-10 12:16 | PDOC ---
PROGRESS NOTES Date of Service: DATE: 10/10/20 TIME: 12:16 Chief Complaint Chief Complaint IMPRESSION COVID positive Acute respiratory failure Bilateral opacities on chest CT Abnormal D dimer (elevated) DM2 CAD HTN HLD Hyperglycemia Thrombocytosis GENERALIZED WEAKNESS, slow to improve, unable to ambulate into apartment 2nd floor History of Present Illness History of Present Illness 10/10/2020 Patient seen and examined Discussed with RN Chart reviewed remains weak plan d/c - with home health, needs walker 10/07/2020 Patient seen and examined Patient resting comfortably in bed Discussed wtih RN Discussed with business case analyst Patient wants to leave today but RN states he is too weak for D/C today due to weakness and SOB History of Present Illness Patient is a 60-year-old male with past medical history DM2, who presents to the ER complaining of worsening of weakness for the past several days. He reports associated nausea, vomiting, fevers, and shortness of breath. This morning he fell to the floor and was barely able to crawl to his neighbors transfer assistance, and was then brought to the ER for further evaluation. He has known COVID-19 exposure at work. Upon arrival he was tachycardic, and his chest x-ray showed diffuse bilateral opacities suspicious for COVID-19 viral pneumonia. He is very weak and I feel unable to care for himself at this time. Will admit patient for further management. Past Medical History Cardiovascular: CAD, HTN, Hyperlipidemia GI: GERD Psych: No pertinent hx Rheumatologic: No pertinent hx Renal/: Chronic renal insuff Endocrine: Diabetes Vitals Vitals Vital Signs Date Time Temp Pulse Resp B/P (MAP) Pulse Ox O2 Delivery O2 Flow Rate FiO2 10/10/20 06:12 97.6 105 18 122/65 (84) 100 Room Air 97.6 Physical Exam Physical Exam Physical Exam General: Alert, Oriented X3, Cooperative, sitting bedside chair HEENT: PERRLA, EOMI Lungs: Clear to auscultation, Normal air movement Heart: Tachycardic. No murmurs Cardiovascular: S1, S2 Abdomen: Normal bowel sounds, Soft, No tenderness Extremities: No clubbing, No cyanosis Skin: No rashes, No significant lesion Neuro: Normal speech, Normal tone, Sensation intact Psych/Mental Status: Mental status NL, Mood NL General: Alert, Oriented X3, Cooperative, No acute distress Heart: Regular rate, No murmurs Lungs: Clear Abdomen: Normal bowel sounds, No tenderness Extremities: No clubbing, No cyanosis Skin: No rashes Labs LABS Laboratory Tests Test 10/09/20 17:50 10/09/20 20:35 10/10/20 04:30 10/10/20 08:52 Glucose (Fingerstick) 276 mg/dL (70-99) 234 mg/dL (70-99) 411 mg/dL (70-99) White Blood Count 15.3 x10^3/uL (4.0-11.0) Red Blood Count 4.40 x10^6/uL (4.30-5.70) Hemoglobin 11.8 g/dL (13.0-17.5) Hematocrit 36.2 % (39.0-53.0) Mean Corpuscular Volume 82 fL (79-100) Mean Corpuscular Hemoglobin 27 pg (25-35) Mean Corpuscular Hemoglobin Concent 33 g/dL (31-37) Red Cell Distribution Width 15.3 % (11.5-14.5) Platelet Count 501 x10^3/uL (140-400) Neutrophils (%) (Auto) 82 % (31-73) Lymphocytes (%) (Auto) 11 % (24-48) Monocytes (%) (Auto) 6 % (0-9) Eosinophils (%) (Auto) 0 % (0-3) Basophils (%) (Auto) 0 % (0-3) Neutrophils # (Auto) 12.5 x10^3/uL (1.8-7.7) Lymphocytes # (Auto) 1.7 x10^3/uL (1.0-4.8) Monocytes # (Auto) 1.0 x10^3/uL (0.0-1.1) Eosinophils # (Auto) 0.0 x10^3/uL (0.0-0.7) Basophils # (Auto) 0.0 x10^3/uL (0.0-0.2) Segmented Neutrophils % 89 % (35-66) Band Neutrophils % 2 % (0-9) Lymphocytes % 8 % (24-48) Monocytes % 1 % (0-10) Platelet Estimate Increased (ADEQUATE) Sodium Level 140 mmol/L (136-145) Potassium Level 4.7 mmol/L (3.5-5.1) Chloride Level 103 mmol/L (98-107) Carbon Dioxide Level 28 mmol/L (21-32) Anion Gap 9 (6-14) Blood Urea Nitrogen 29 mg/dL (8-26) Creatinine 1.5 mg/dL (0.7-1.3) Estimated GFR (Cockcroft-Gault) 57.8 BUN/Creatinine Ratio 19 (6-20) Glucose Level 407 mg/dL (70-99) Calcium Level 9.0 mg/dL (8.5-10.1) Total Bilirubin 0.2 mg/dL (0.2-1.0) Aspartate Amino Transf (AST/SGOT) 18 U/L (15-37) Alanine Aminotransferase (ALT/SGPT) 39 U/L (16-63) Alkaline Phosphatase 97 U/L (46-116) Total Protein 6.6 g/dL (6.4-8.2) Albumin 3.2 g/dL (3.4-5.0) Albumin/Globulin Ratio 0.9 (1.0-1.7) Comment Review of Relevant I have reviewed the following items prashant (where applicable) has been applied. Labs Laboratory Tests Test 10/08/20 16:58 10/08/20 20:28 10/09/20 08:38 10/09/20 12:15 Glucose (Fingerstick) 201 mg/dL (70-99) 314 mg/dL (70-99) 266 mg/dL (70-99) 151 mg/dL (70-99) Test 10/09/20 17:50 10/09/20 20:35 10/10/20 04:30 10/10/20 08:52 Glucose (Fingerstick) 276 mg/dL (70-99) 234 mg/dL (70-99) 411 mg/dL (70-99) White Blood Count 15.3 x10^3/uL (4.0-11.0) Red Blood Count 4.40 x10^6/uL (4.30-5.70) Hemoglobin 11.8 g/dL (13.0-17.5) Hematocrit 36.2 % (39.0-53.0) Mean Corpuscular Volume 82 fL (79-100) Mean Corpuscular Hemoglobin 27 pg (25-35) Mean Corpuscular Hemoglobin Concent 33 g/dL (31-37) Red Cell Distribution Width 15.3 % (11.5-14.5) Platelet Count 501 x10^3/uL (140-400) Neutrophils (%) (Auto) 82 % (31-73) Lymphocytes (%) (Auto) 11 % (24-48) Monocytes (%) (Auto) 6 % (0-9) Eosinophils (%) (Auto) 0 % (0-3) Basophils (%) (Auto) 0 % (0-3) Neutrophils # (Auto) 12.5 x10^3/uL (1.8-7.7) Lymphocytes # (Auto) 1.7 x10^3/uL (1.0-4.8) Monocytes # (Auto) 1.0 x10^3/uL (0.0-1.1) Eosinophils # (Auto) 0.0 x10^3/uL (0.0-0.7) Basophils # (Auto) 0.0 x10^3/uL (0.0-0.2) Segmented Neutrophils % 89 % (35-66) Band Neutrophils % 2 % (0-9) Lymphocytes % 8 % (24-48) Monocytes % 1 % (0-10) Platelet Estimate Increased (ADEQUATE) Sodium Level 140 mmol/L (136-145) Potassium Level 4.7 mmol/L (3.5-5.1) Chloride Level 103 mmol/L (98-107) Carbon Dioxide Level 28 mmol/L (21-32) Anion Gap 9 (6-14) Blood Urea Nitrogen 29 mg/dL (8-26) Creatinine 1.5 mg/dL (0.7-1.3) Estimated GFR (Cockcroft-Gault) 57.8 BUN/Creatinine Ratio 19 (6-20) Glucose Level 407 mg/dL (70-99) Calcium Level 9.0 mg/dL (8.5-10.1) Total Bilirubin 0.2 mg/dL (0.2-1.0) Aspartate Amino Transf (AST/SGOT) 18 U/L (15-37) Alanine Aminotransferase (ALT/SGPT) 39 U/L (16-63) Alkaline Phosphatase 97 U/L (46-116) Total Protein 6.6 g/dL (6.4-8.2) Albumin 3.2 g/dL (3.4-5.0) Albumin/Globulin Ratio 0.9 (1.0-1.7) Laboratory Tests Test 10/09/20 17:50 10/09/20 20:35 10/10/20 04:30 10/10/20 08:52 Glucose (Fingerstick) 276 mg/dL (70-99) 234 mg/dL (70-99) 411 mg/dL (70-99) White Blood Count 15.3 x10^3/uL (4.0-11.0) Red Blood Count 4.40 x10^6/uL (4.30-5.70) Hemoglobin 11.8 g/dL (13.0-17.5) Hematocrit 36.2 % (39.0-53.0) Mean Corpuscular Volume 82 fL (79-100) Mean Corpuscular Hemoglobin 27 pg (25-35) Mean Corpuscular Hemoglobin Concent 33 g/dL (31-37) Red Cell Distribution Width 15.3 % (11.5-14.5) Platelet Count 501 x10^3/uL (140-400) Neutrophils (%) (Auto) 82 % (31-73) Lymphocytes (%) (Auto) 11 % (24-48) Monocytes (%) (Auto) 6 % (0-9) Eosinophils (%) (Auto) 0 % (0-3) Basophils (%) (Auto) 0 % (0-3) Neutrophils # (Auto) 12.5 x10^3/uL (1.8-7.7) Lymphocytes # (Auto) 1.7 x10^3/uL (1.0-4.8) Monocytes # (Auto) 1.0 x10^3/uL (0.0-1.1) Eosinophils # (Auto) 0.0 x10^3/uL (0.0-0.7) Basophils # (Auto) 0.0 x10^3/uL (0.0-0.2) Segmented Neutrophils % 89 % (35-66) Band Neutrophils % 2 % (0-9) Lymphocytes % 8 % (24-48) Monocytes % 1 % (0-10) Platelet Estimate Increased (ADEQUATE) Sodium Level 140 mmol/L (136-145) Potassium Level 4.7 mmol/L (3.5-5.1) Chloride Level 103 mmol/L (98-107) Carbon Dioxide Level 28 mmol/L (21-32) Anion Gap 9 (6-14) Blood Urea Nitrogen 29 mg/dL (8-26) Creatinine 1.5 mg/dL (0.7-1.3) Estimated GFR (Cockcroft-Gault) 57.8 BUN/Creatinine Ratio 19 (6-20) Glucose Level 407 mg/dL (70-99) Calcium Level 9.0 mg/dL (8.5-10.1) Total Bilirubin 0.2 mg/dL (0.2-1.0) Aspartate Amino Transf (AST/SGOT) 18 U/L (15-37) Alanine Aminotransferase (ALT/SGPT) 39 U/L (16-63) Alkaline Phosphatase 97 U/L (46-116) Total Protein 6.6 g/dL (6.4-8.2) Albumin 3.2 g/dL (3.4-5.0) Albumin/Globulin Ratio 0.9 (1.0-1.7) Microbiology 10/03/20 Blood Culture - Final, Complete NO GROWTH AFTER 5 DAYS Medications Current Medications Ceftriaxone Sodium (Rocephin) 1 gm 1X ONCE IVP Last administered on 10/03/20at 11:57; Start 10/03/20 at 11:30; Stop 10/03/20 at 11:31; Status DC Iohexol (Omnipaque 350 Mg/ml) 100 ml 1X ONCE IV Last administered on 10/03/20at 13:29; Start 10/03/20 at 13:00; Stop 10/03/20 at 13:01; Status DC Info (CONTRAST GIVEN -- Rx MONITORING) 1 each PRN DAILY PRN MC SEE COMMENTS; Start 10/03/20 at 13:00; Stop 10/05/20 at 12:59; Status DC Dexamethasone Sodium Phosphate (Decadron) 10 mg 1X ONCE IVP Last administered on 10/03/20at 13:52; Start 10/03/20 at 13:00; Stop 10/03/20 at 13:01; Status DC Ceftriaxone Sodium (Rocephin) 1 gm 1X ONCE IVP ; Start 10/03/20 at 13:00; Stop 10/03/20 at 13:01; Status DC Ketorolac Tromethamine (Toradol 30mg Vial) 30 mg 1X ONCE IVP Last administered on 10/03/20at 13:51; Start 10/03/20 at 13:00; Stop 10/03/20 at 13:01; Status DC Doxycycline Hyclate 100 mg/ Dextrose 100 ml @ 50 mls/hr BID IV Last administered on 10/08/20at 08:44; Start 10/03/20 at 21:00; Stop 10/08/20 at 20:59; Status DC Doxycycline Hyclate 100 mg/ Dextrose 100 ml @ 50 mls/hr ONCE ONCE IV ; Start 10/03/20 at 15:00; Stop 10/03/20 at 16:59; Status DC Ondansetron HCl (Zofran) 4 mg PRN Q6HRS PRN IVP NAUSEA/VOMITING; Start 10/03/20 at 14:30 Prochlorperazine Edisylate (Compazine) 10 mg PRN Q6HRS PRN IVP NAUSEA/VOMITING 2ND CHOICE; Start 10/03/20 at 14:30 Al Hydroxide/Mg Hydroxide (Mylanta Plus Xs) 30 ml PRN Q3HRS PRN PO HEARTBURN / GAS; Start 10/03/20 at 14:30 Calcium Carbonate/ Glycine (Tums) 500 mg PRN Q3HRS PRN PO UPSET STOMACH; Start 10/03/20 at 14:30 Zolpidem Tartrate (Ambien) 5 mg PRN QHS PRN PO INSOMNIA, MAY REPEAT IN 1HR; Start 10/03/20 at 14:30 Morphine Sulfate (Morphine Sulfate) 2 mg PRN Q1HR PRN IV PAIN Last administered on 10/07/20at 23:16; Start 10/03/20 at 14:30 Acetaminophen (Tylenol) 650 mg PRN Q6HRS PRN PO Headaches, Temp > 101.5F Last administered on 10/09/20at 20:24; Start 10/03/20 at 14:30 Magnesium Hydroxide (Milk Of Magnesia) 2,400 mg PRN Q12HR PRN PO CONSTIPATION; Start 10/03/20 at 14:30 Bisacodyl (Dulcolax Supp) 10 mg PRN DAILY PRN MA CONSTIPATION; Start 10/03/20 at 14:30 Enoxaparin Sodium (Lovenox 40mg Syringe) 40 mg Q24H SQ Last administered on 10/07/20at 07:55; Start 10/04/20 at 09:00; Stop 10/07/20 at 16:07; Status DC Insulin Glargine (Lantus Syringe) 10 unit QHS SQ ; Start 10/03/20 at 21:00; Stop 10/03/20 at 20:44; Status DC Insulin Human Lispro (HumaLOG) 0-7 UNITS TIDWMEALS SQ Last administered on 10/03/20at 18:17; Start 10/03/20 at 17:00; Stop 10/04/20 at 08:08; Status DC Dextrose (Dextrose 50%-Water Syringe) 12.5 gm PRN Q15MIN PRN IV SEE COMMENTS; Start 10/03/20 at 14:30 Sodium Chloride 1,000 ml @ 75 mls/hr CONT PRN IV SEE I/O Last administered on 10/03/20at 16:15; Start 10/03/20 at 14:30 Zinc Sulfate (Orazinc) 220 mg DAILY PO Last administered on 10/10/20 08:58; Start 10/04/20 at 09:00 Ascorbic Acid (Vitamin C) 500 mg Q6HRS PO Last administered on 10/10/20 05:47; Start 10/03/20 at 18:00 Vitamin D (Vitamin D3) 5,000 unit DAILY PO Last administered on 10/10/20 08:58; Start 10/04/20 at 09:00 Diphenoxylate HCl/ Atropine (Lomotil) 1 tab PRN QID PRN PO DIARRHEA; Start 10/03/20 at 15:15 Insulin Human Lispro (HumaLOG) 5 units 1X ONCE SQ ; Start 10/03/20 at 18:30; Stop 10/03/20 at 18:31; Status DC Insulin Human Regular (HumuLIN R VIAL) 5 unit 1X ONCE IV Last administered on 10/03/20at 18:24; Start 10/03/20 at 18:30; Stop 10/03/20 at 18:32; Status DC Insulin Glargine (Lantus Syringe) 70 unit QHS SQ Last administered on 10/09/20at 20:40; Start 10/03/20 at 21:00 Tramadol HCl (Ultram) 50 mg PRN Q6HRS PRN PO PAIN Last administered on 10/07/20at 20:33; Start 10/03/20 at 20:45 Insulin Human Lispro (HumaLOG) 20 units 1X ONCE SQ Last administered on 10/04/20 08:34; Start 10/04/20 at 08:15; Stop 10/04/20 at 08:25; Status DC Insulin Human Lispro (HumaLOG) 30 units TIDWMEALS SQ ; Start 10/04/20 at 12:00; Stop 10/04/20 at 10:20; Status DC Aspirin (Ecotrin) 81 mg DAILYWBKFT PO Last administered on 10/10/20 08:58; Start 10/04/20 at 12:00 Atorvastatin Calcium (Lipitor) 20 mg QHS PO Last administered on 10/09/20 20:24; Start 10/04/20 at 21:00 Insulin Human Lispro (HumaLOG) 30 units TIDWMEALS SQ Last administered on 10/10/20 09:00; Start 10/04/20 at 12:00 Multivitamins (Thera M Plus) 1 tab DAILY PO Last administered on 10/10/20 08:58; Start 10/04/20 at 12:00 Non-Formulary Medication (Nph, Human Insulin Isophane (Novolin N)) 70 unit HS SQ ; Start 10/04/20 at 21:00; Status UNV Pantoprazole Sodium (Protonix) 40 mg DAILYAC PO Last administered on 10/10/20 08:58; Start 10/05/20 at 07:30 Lactobacillus Rhamnosus (Culturelle) 1 cap BID PO Last administered on 10/10/20 08:58; Start 10/04/20 at 21:00 Throat Lozenges (Cepacol Sore Throat Lozenge) 1 elie PRN Q2HRS PRN PO SORE THROAT Last administered on 10/09/20 15:34; Start 10/05/20 at 14:30 Dexamethasone (Decadron) 4 mg DAILYWBKFT PO Last administered on 10/10/20 08:58; Start 10/05/20 at 15:00 Phenol (Chloraseptic) 1 spray PRN Q2HR PRN PO SORE THROAT Last administered on 10/05/20at 17:23; Start 10/05/20 at 15:15 Enalaprilat (Vasotec Inj) 1.25 mg PRN Q6HRS PRN IVP ELEVATED BP, SEE COMMENTS; Start 10/06/20 at 08:30 Enoxaparin Sodium (Lovenox 40mg Syringe) 40 mg BID SQ Last administered on 10/10/20at 08:58; Start 10/07/20 at 21:00 Active Scripts Active Multivitamins (Multivitamin) 1 Each Tablet 1 Tab PO DAILY [Pantoprazole] 40 MG Tablet. 40 Mg PO DAILYAC 30 Days Aspirin Ec (Aspirin) 81 Mg Tablet. 81 Mg PO DAILYWBKFT 30 Days Atorvastatin Calcium 20 Mg Tablet 20 Mg PO QHS 30 Days Reported Novolin N (Nph, Human Insulin Isophane) 100 Unit/1 Ml Vial 70 Unit SQ HS Novolin R (Insulin Regular, Human) 100 Unit/1 Ml Vial 30 Unit IJ TIDWMEALS Vitals/I & O Vital Sign - Last 24 Hours 10/09/20 10/09/20 10/09/20 10/09/20 15:00 19:36 20:00 23:04 Temp 98.1 97.9 97.5 98.1 97.9 97.5 Pulse 98 115 90 Resp 16 16 18 B/P (MAP) 113/78 (90) 121/74 (90) 119/78 (92) Pulse Ox 94 99 97 O2 Delivery Room Air Room Air Room Air Room Air 10/10/20 10/10/20 03:59 06:12 Temp 98.5 97.6 98.5 97.6 Pulse 104 105 Resp 16 18 B/P (MAP) 127/90 (102) 122/65 (84) Pulse Ox 100 100 O2 Delivery Room Air Room Air Intake and Output 10/09/20 10/09/20 10/10/20 15:00 23:00 07:00 Intake Total 300 ml 360 ml 880 ml Output Total 300 ml 900 ml 1775 ml Balance 0 ml -540 ml -895 ml Justicifation of Admission Dx: Justifications for Admission: Justification of Admission Dx: Yes Comminuty Aquired Pneumonia: Hypoxemia VENECIA MINAYA MD Oct 10, 2020 12:16
[2020-10-10 15:00] VITALS: BP 119/71
[2020-10-10 19:00] VITALS: BP 139/82
[2020-10-10] MEDS: ATORVASTATIN CALCIUM 20 MG TABLET PO SCH (20:09)
[2020-10-10] MEDS: INSULIN GLARGINE SYRINGE. SQ SCH (20:17)
[2020-10-10 23:02] VITALS: BP 144/82
[2020-10-11] MEDS: ASCORBIC ACID 500 MG TABLET PO SCH ×4 (01:25→17:14)
[2020-10-11 03:40] VITALS: BP 145/78
[2020-10-11 07:00] VITALS: BP 140/93
[2020-10-11] MEDS: ASPIRIN ENTERIC COATED 81 MG TABLET.DR. PO SCH (09:04)
[2020-10-11] MEDS: PANTOPRAZOLE 40 MG TABLET.DR. PO SCH (09:04)
[2020-10-11] MEDS: DEXAMETHASONE 4 MG TABLET PO SCH (09:04)
[2020-10-11] MEDS: CHOLECALCIFEROL (VITAMIN D3) 5,000 UNIT CAPSULE PO SCH (09:04)
[2020-10-11] MEDS: ENOXAPARIN 40 MG/0.4 ML SYRINGE. SQ SCH ×2 (09:04→21:16)
[2020-10-11] MEDS: LACTOBACILLUS RHAMNOSUS GG 1 CAPSULE. PO SCH ×2 (09:04→21:16)
[2020-10-11] MEDS: ZINC SULFATE 220 MG CAPSULE. PO SCH (09:04)
[2020-10-11] MEDS: MULTIVITAMIN with MINERAL TABLET. PO SCH (09:04)
[2020-10-11] MEDS: INSULIN LISPRO 300 UNITS/3 ML VIAL. SQ SCH ×3 (09:07→17:17)
[2020-10-11 11:00] VITALS: BP 133/73
--- NOTE | 2020-10-11 13:35 | NUR ---
SS following up with discharge planning. SS reviewed pt chart and discussed with pt RN. Pt is currently on room air. COVID19 positive. Self pay. Pt improving with PT/OT. Discharge to home when ready. SS will continue to follow for discharge planning.
[2020-10-11 15:00] VITALS: BP 127/75
--- NOTE | 2020-10-11 16:15 | PDOC ---
[facility] PROGRESS NOTE Date of Service DOS: DATE: 10/11/20 TIME: 16:13 Chief Complaint Chief Complaint IMPRESSION COVID positive Acute respiratory failure Bilateral opacities on chest CT Abnormal D dimer (elevated) DM2 CAD HTN HLD Hyperglycemia Thrombocytosis GENERALIZED WEAKNESS, slow to improve, unable to ambulate into apartment 2nd floor History of Present Illness History of Present Illness 10/11/2020 Patient seen and examined at bedside. COVID-19 positive. He is breathing 98% on room air. Worked with PT today. Will discharge home with home health and walker. 10/10/2020 Patient seen and examined Discussed with RN Chart reviewed remains weak plan d/c - with home health, needs walker 10/07/2020 Patient seen and examined Patient resting comfortably in bed Discussed wtih RN Discussed with rn case mgr Patient wants to leave today but RN states he is too weak for D/C today due to weakness and SOB History of Present Illness Patient is a 60-year-old male with past medical history DM2, who presents to the ER complaining of worsening of weakness for the past several days. He reports associated nausea, vomiting, fevers, and shortness of breath. This morning he fell to the floor and was barely able to crawl to his neighbors transfer assistance, and was then brought to the ER for further evaluation. He has known COVID-19 exposure at work. Upon arrival he was tachycardic, and his chest x-ray showed diffuse bilateral opacities suspicious for COVID-19 viral pneumonia. He is very weak and I feel unable to care for himself at this time. Will admit patient for further management. Past Medical History Cardiovascular: CAD, HTN, Hyperlipidemia GI: GERD Psych: No pertinent hx Rheumatologic: No pertinent hx Renal/: Chronic renal insuff Endocrine: Diabetes Vitals/I&O Vitals/I&O: Vital Signs Date Time Temp Pulse Resp B/P (MAP) Pulse Ox O2 Delivery O2 Flow Rate FiO2 10/11/20 11:00 98.0 87 16 133/73 (93) 98 Room Air 98.0 I & O 10/10/20 10/10/20 10/11/20 15:00 23:00 07:00 Intake Total 480 ml 400 ml 0 ml Output Total 1500 ml 1050 ml 250 ml Balance -1020 ml -650 ml -250 ml Physical Exam Physical Exam: Physical Exam General: Alert, Oriented X3, Cooperative, sitting bedside chair HEENT: PERRLA, EOMI Lungs: Clear to auscultation, Normal air movement Heart: Tachycardic. No murmurs Cardiovascular: S1, S2 Abdomen: Normal bowel sounds, Soft, No tenderness Extremities: No clubbing, No cyanosis Skin: No rashes, No significant lesion Neuro: Normal speech, Normal tone, Sensation intact Psych/Mental Status: Mental status NL, Mood NL General: Alert, Oriented X3, Cooperative, No acute distress Heart: Regular rate, No murmurs Lungs: Clear Abdomen: Normal bowel sounds, No tenderness Extremities: No clubbing, No cyanosis Skin: No rashes Labs Labs: Laboratory Tests Test 10/10/20 17:43 10/10/20 20:13 10/11/20 06:19 10/11/20 10:19 Glucose (Fingerstick) 233 mg/dL (70-99) 352 mg/dL (70-99) 239 mg/dL (70-99) 248 mg/dL (70-99) Comment Review of Relevant I have reviewed the following items prashant (where applicable) has been applied. Justifications for Admission Other Justification Weakness, physical debility, atypical pneumonia, COVID-19 GUSTAVO DYER MD Oct 11, 2020 16:15
[2020-10-11 19:50] VITALS: BP 145/79
[2020-10-11] MEDS: ATORVASTATIN CALCIUM 20 MG TABLET PO SCH (21:16)
[2020-10-11] MEDS: INSULIN GLARGINE SYRINGE. SQ SCH (21:17)
[2020-10-11 23:50] VITALS: BP 148/91
[2020-10-12 03:51] VITALS: BP 140/73
[2020-10-12] MEDS: ASCORBIC ACID 500 MG TABLET PO SCH ×3 (06:00→10:24)
[2020-10-12 07:00] VITALS: BP 111/76
[2020-10-12] MEDS: MULTIVITAMIN with MINERAL TABLET. PO SCH (08:59)
[2020-10-12] MEDS: CHOLECALCIFEROL (VITAMIN D3) 5,000 UNIT CAPSULE PO SCH (08:59)
[2020-10-12] MEDS: ASPIRIN ENTERIC COATED 81 MG TABLET.DR. PO SCH (08:59)
[2020-10-12] MEDS: ZINC SULFATE 220 MG CAPSULE. PO SCH (08:59)
[2020-10-12] MEDS: PANTOPRAZOLE 40 MG TABLET.DR. PO SCH (08:59)
[2020-10-12] MEDS: LACTOBACILLUS RHAMNOSUS GG 1 CAPSULE. PO SCH (09:00)
[2020-10-12] MEDS: ENOXAPARIN 40 MG/0.4 ML SYRINGE. SQ SCH (09:00)
[2020-10-12] MEDS: DEXAMETHASONE 4 MG TABLET PO SCH (09:00)
[2020-10-12] MEDS: INSULIN LISPRO 300 UNITS/3 ML VIAL. SQ SCH ×3 (10:24→17:31)
[2020-10-12 10:59] VITALS: BP 112/84
--- NOTE | 2020-10-12 13:57 | NUR ---
SS following up with discharge planning. SS reviewed pt chart and discussed with pt RN. Pt is currently on room air. COVID19 positive. Self pay. Pt improving with PT/OT. Discharge to home today. Pt provided with walker for home. SS will continue to follow for discharge planning.
--- NOTE | 2020-10-12 14:40 | PDOC ---
[facility] [facility] PROGRESS NOTE Date of Service DOS: DATE: 10/12/20 TIME: 14:39 Chief Complaint Chief Complaint IMPRESSION COVID positive Acute respiratory failure Bilateral opacities on chest CT Abnormal D dimer (elevated) DM2 CAD HTN HLD Hyperglycemia Thrombocytosis GENERALIZED WEAKNESS, slow to improve, unable to ambulate into apartment 2nd floor History of Present Illness History of Present Illness 10/12/2020 Patient seen and evaluated bedside. States his symptoms of sore throat, nausea, and vomiting have resolved. He has been working with physical therapy and is comfortable performing home exercises. Will discharge patient with a walker. G reater than 30 minutes spent managing the discharge this patient. 10/11/2020 Patient seen and examined at bedside. COVID-19 positive. He is breathing 98% on room air. Worked with PT today. Will discharge home with home health and walker. 10/10/2020 Patient seen and examined Discussed with RN Chart reviewed remains weak plan d/c 01- with home health, needs walker 10/07/2020 Patient seen and examined Patient resting comfortably in bed Discussed wtih RN Discussed with embedded case manager Patient wants to leave today but RN states he is too weak for D/C today due to weakness and SOB History of Present Illness Patient is a 60-year-old male with past medical history DM2, who presents to the ER complaining of worsening of weakness for the past several days. He reports associated nausea, vomiting, fevers, and shortness of breath. This morning he fell to the floor and was barely able to crawl to his neighbors transfer assistance, and was then brought to the ER for further evaluation. He has known COVID-19 exposure at work. Upon arrival he was tachycardic, and his chest x-ray showed diffuse bilateral opacities suspicious for COVID-19 viral pneumonia. He is very weak and I feel unable to care for himself at this time. Will admit patient for further management. Past Medical History Cardiovascular: CAD, HTN, Hyperlipidemia GI: GERD Psych: No pertinent hx Rheumatologic: No pertinent hx Renal/: Chronic renal insuff Endocrine: Diabetes Vitals/I&O Vitals/I&O: Vital Signs Date Time Temp Pulse Resp B/P (MAP) Pulse Ox O2 Delivery O2 Flow Rate FiO2 10/12/20 10:59 97.8 110 18 112/84 (93) 98 Room Air 97.8 I & O 10/11/20 10/11/20 10/12/20 15:00 23:00 07:00 Intake Total 360 ml 360 ml 700 ml Output Total 1300 ml Balance -940 ml 360 ml 700 ml Physical Exam Physical Exam: Physical Exam General: Alert, Oriented X3, Cooperative, sitting bedside chair HEENT: PERRLA, EOMI Lungs: Clear to auscultation, Normal air movement Heart: Tachycardic. No murmurs Cardiovascular: S1, S2 Abdomen: Normal bowel sounds, Soft, No tenderness Extremities: No clubbing, No cyanosis Skin: No rashes, No significant lesion Neuro: Normal speech, Normal tone, Sensation intact Psych/Mental Status: Mental status NL, Mood NL General: Alert, Oriented X3, Cooperative, No acute distress Heart: Regular rate, No murmurs Lungs: Clear Abdomen: Normal bowel sounds, No tenderness Extremities: No clubbing, No cyanosis Skin: No rashes Labs Labs: Laboratory Tests Test 10/11/20 16:57 10/11/20 20:57 10/12/20 07:41 10/12/20 11:39 Glucose (Fingerstick) 281 mg/dL (70-99) 194 mg/dL (70-99) 166 mg/dL (70-99) 229 mg/dL (70-99) Comment Review of Relevant I have reviewed the following items prashant (where applicable) has been applied. Justifications for Admission Other Justification Weakness, physical debility, atypical pneumonia, COVID-19 GUSTAVO DYER MD Oct 12, 2020 14:40
--- NOTE | 2020-10-12 14:54 | PDOC3 ---
Discharge Summary Visit Information Date of Admission: Oct 03, 2020 Date of Discharge: Oct 12, 2020 Brief Hospital Course Allergies Allergies Coded Allergies Type Severity Reaction Last Updated Verified No Known Drug Allergies 09/05/18 No Vital Signs Vital Signs Date Time Temp Pulse Resp B/P (MAP) Pulse Ox O2 Delivery O2 Flow Rate FiO2 10/12/20 10:59 97.8 110 18 112/84 (93) 98 Room Air 97.8 Lab Results Laboratory Tests Test 10/10/20 17:43 10/10/20 20:13 10/11/20 06:19 10/11/20 10:19 Glucose (Fingerstick) 233 mg/dL (70-99) 352 mg/dL (70-99) 239 mg/dL (70-99) 248 mg/dL (70-99) Test 10/11/20 16:57 10/11/20 20:57 10/12/20 07:41 10/12/20 11:39 Glucose (Fingerstick) 281 mg/dL (70-99) 194 mg/dL (70-99) 166 mg/dL (70-99) 229 mg/dL (70-99) Laboratory Tests Test 10/11/20 16:57 10/11/20 20:57 10/12/20 07:41 10/12/20 11:39 Glucose (Fingerstick) 281 mg/dL (70-99) 194 mg/dL (70-99) 166 mg/dL (70-99) 229 mg/dL (70-99) Brief Hospital Course Mr. Bearden is a 60 old male who presented with COVID-19 pneumonia. He was treated with steroids, vitamin C, vitamin D, zinc, and oxygen as needed for supportive care. He worked with physical therapy to gain strength. He was sta ble for discharge home with a walker on 10/12/2020. Discharge Information Condition at Discharge: Improved Disposition/Orders: D/C to Home Scheduled Aspirin (Aspirin Ec) 81 Mg Tablet., 81 MG PO DAILYWBK for HEART HEALTH for 30 Days, #30 Prescribed by: VENECIA MINAYA MD on 09/10/18 1117 Last Action: Continued on 10/04/20 0953 by VENECIA MINAYA MD Atorvastatin Calcium (Atorvastatin Calcium) 20 Mg Tablet, 20 MG PO QHS for CHOLESTEROL for 30 Days, #30 Prescribed by: VENECIA MINAYA MD on 09/10/181116 Last Action: Continued on 10/04/20952 by VENECIA MINAYA MD Insulin Regular, Human (Novolin R) 100 Unit/1 Ml Vial, 30 UNIT IJ TIDWMEALS for sugar control, (Reported) Entered as Reported by: VIDA SALEH on 09/05/18 1701 Last Action: Continued on 10/04/20952 by VENECIA MINAYA MD Multivitamin (Multivitamins) 1 Each Tablet, 1 TAB PO DAILY for SUPPLEMENT, #90 Ref 3 Prescribed by: VENECIA MINAYA MD on 09/10/181116 Last Action: Converted on 10/04/20952 by VENECIA MINAYA MD Nph, Human Insulin Isophane (Novolin N) 100 Unit/1 Ml Vial, 70 UNIT SQ HS for blood sugar, (Reported) Entered as Reported by: Michelle Iraheta on 09/05/181928 Last Action: Converted on 10/04/20952 by VENECIA MINAYA MD [Pantoprazole] 40 MG TABLET.DR, 40 MG PO DAILYAC for REFLUX for 30 Days, #30 Prescribed by: VENECIA MINAYA MD on 09/10/181116 Last Action: Converted on 10/04/20952 by VENECIA MINAYA MD Justicifation of Admission Dx: Justifications for Admission: Justification of Admission Dx: Yes Comminuty Aquired Pneumonia: Hypoxemia GUSTAVO BOONE MD Oct 12, 2020 14:54
== END 2020-10-12 18:10 | disposition home or self-care (01) | DRG 177 ==
LOC: ER 11:13 → ED HOLD 13:27 → 2 SOUTH 18:02
PROVIDERS: ADMIT Family Medicine; ATTEND Family Medicine
DX: U07.1 COVID-19 (principal); J96.01 Acute respiratory failure with hypoxia; J12.82 Pneumonia due to coronavirus disease 2019; E11.22 Type 2 diabetes mellitus with diabetic chronic kidney disease; E11.65 Type 2 diabetes mellitus with hyperglycemia; E78.5 Hyperlipidemia, unspecified; I12.9 Hypertensive chronic kidney disease with stage 1 through stage 4 chronic kidney disease, or unspecified chronic kidney disease; I25.10 Atherosclerotic heart disease of native coronary artery without angina pectoris; K21.9 Gastro-esophageal reflux disease without esophagitis; N18.9 Chronic kidney disease, unspecified; Z79.4 Long term (current) use of insulin; Z82.49 Family history of ischemic heart disease and other diseases of the circulatory system; Z95.1 Presence of aortocoronary bypass graft
CPT/HCPCS: 36415; 71045; 71275; 80053; 80307; 82550; 82962; 83036; 83605; 83615; 83880; 84484; 85007; 85025; 85379; 86140; 87040; 87804; 96374; 96375; J0696; J1100; J1650; J1815; J1885; J2270; J3490; J7030; J7060; Q9967; U0003; 97110-GO; 97110-GP; 97116-GP; 97530-GO; 97535-GO; 99285-25; G0378